=== PATIENT | male | born 1985 | race Caucasian/White ===

== ENCOUNTER 2017-02-06 17:16 | Inpatient (IN) | payer MEDICAID ==
[~2017-02-06] VITALS: Ht 170.2 cm; Wt 101.8 kg
[2017-02-06 19:24] LABS: ANION GAP 7 mmol/L (8-16); CALCIUM, TOTAL 8.5 mg/dL (8.8-10.5); CARBON DIOXIDE 25 mmol/L (22-29); CHLORIDE 106 mmol/L (98-107); CREATININE 0.86 mg/dL (0.60-1.30); GLOMERULAR FILTR. RATE CALC > 60 mL/min (>60); POTASSIUM 4.5 mmol/L (3.5-5.1); SODIUM SERUM 138 mmol/L (136-145); UREA NITROGEN, BLOOD 9 mg/dL (7-18)
[2017-02-06 19:29] LABS: ALANINE AMINOTRANSFERASE 43 U/L (12-78); ALBUMIN 3.5 g/dL (3.4-5.0); ASPARTATE AMINOTRANSFERASE 18 U/L (15-37); BILIRUBIN,TOTAL 0.4 mg/dL (0.1-1.0); TOTAL PROTEIN, SERUM 7.3 g/dL (6.4-8.2)
[2017-02-06 19:54] LABS: BASOPHILS % (AUTO) 0.1 % (0.0-2.0); EOSINOPHILS % (AUTO) 3.5 % (1.0-6.0); HEMATOCRIT 49.2 % (41-53); LYMPHOCYTES # (AUTO) 2.9 K/uL (1.0-4.8); LYMPHOCYTES % (AUTO) 25.2 % (22.0-44.0); MEAN CORPUSCULAR HGB CONC 32.6 G/dL (31.0-37.0); MEAN CORPUSCULAR VOLUME 83 fL (80-100); MONOCYTES # (AUTO) 0.7 K/uL (0.1-1.0); MONOCYTES % (AUTO) 5.7 % (2.0-9.0); NEUTROPHILS # (AUTO) 7.6 K/uL (1.8-7.7); NEUTROPHILS % (AUTO) 65.5 % (40.0-70.0); PLATELET COUNT (AUTO) 313 K/uL (150-450); RED BLOOD CELL COUNT(AUTO) 5.93 MIL/uL (4.50-5.90); RED CELL DISTRIBUTION WIDTH 13.7 % (11.5-14.5); WHITE BLOOD COUNT (AUTO) 11.6 K/uL (4.5-11.0)
[2017-02-06] MEDS ORDERED: LORazepam 2 MG TABLET PO PRN (20:30)
[2017-02-06] MEDS ORDERED: ZOLPIDEM TARTRATE 10 MG TABLET PO PRN (20:30)
[2017-02-06] MEDS ORDERED: LORazepam 2 MG TABLET PO ONE (20:30)
[2017-02-06] MEDS ORDERED: HALOPERIDOL 5 MG TABLET PO PRN (20:30)
[2017-02-06 22:52] VITALS: BP 122/86
[2017-02-07] MEDS ORDERED: CloNIDine HCL 0.1 MG TABLET PO PRN (08:15)
[2017-02-07] MEDS ORDERED: ALBUTEROL SULFATE HFA 90 MCG/PUFF 8 GM INHALER IH PRN (08:15)
[2017-02-07] MEDS ORDERED: BACITRACIN 28.4 GM OINTMENT TP PRN (08:15)
[2017-02-07] MEDS ORDERED: BENZOCAINE/MENTHOL LOZENGE [8 LOZENGES/PACKET] MM PRN (08:15)
[2017-02-07] MEDS ORDERED: MAG HYDROX/AL HYDROX/SIMETH ES 30 ML SUSPENSION UDCUP PO PRN (08:15)
[2017-02-07] MEDS ORDERED: LOPERAMIDE HCL 2 MG CAPSULE PO PRN (08:15)
[2017-02-07] MEDS ORDERED: ONDANSETRON HCL 4 MG TABLET PO PRN (08:15)
[2017-02-07] MEDS ORDERED: PETROLATUM,WHITE 71 GM JELLY TP PRN (08:15)
[2017-02-07] MEDS ORDERED: MAGNESIUM HYDROXIDE SUSPENSION 30 ML UDCUP PO PRN (08:15)
[2017-02-07] MEDS ORDERED: IBUPROFEN 600 MG TABLET PO PRN (08:15)
[2017-02-07] MEDS ORDERED: ACETAMINOPHEN 325 MG TABLET PO PRN (08:15)
[2017-02-07 09:18] VITALS: BP 126/71
[2017-02-07 17:54] VITALS: BP 122/78
[2017-02-08 08:00] VITALS: BP 130/87
[2017-02-08] MEDS ORDERED: HydrOXYzine PAMOATE 25 MG CAPSULE PO PRN (19:00)
[2017-02-08] MEDS: MIRTAZAPINE 15 MG TABLET PO SCH (20:27)
[2017-02-08 22:34] VITALS: BP 129/87
[2017-02-09 08:07] VITALS: BP 115/75
[2017-02-09 16:24] VITALS: BP 119/68
[2017-02-09] MEDS: MIRTAZAPINE 15 MG TABLET PO SCH (20:18)
[2017-02-10 14:16] VITALS: BP 124/93
[2017-02-10 16:05] VITALS: BP 122/66
[2017-02-10] MEDS: MIRTAZAPINE 15 MG TABLET PO SCH (20:29)
[2017-02-11 08:00] VITALS: BP 129/71
[2017-02-11] MEDS ORDERED: MIRT15 PO (08:56)
== END 2017-02-11 16:00 | disposition home or self-care (01) | DRG 751 ==
LOC: EMS 17:17 → 3EI 21:00
PROVIDERS: ADMIT Psychiatry & Neurology Child & Adolescent Psychiatry; ATTEND Psychiatry & Neurology Child & Adolescent Psychiatry
DX: F33.9 Major depressive disorder, recurrent, unspecified (principal); R45.851 Suicidal ideations; E83.51 Hypocalcemia; F14.10 Cocaine abuse, uncomplicated; E66.9 Obesity, unspecified; F20.9 Schizophrenia, unspecified; F12.90 Cannabis use, unspecified, uncomplicated; F17.200 Nicotine dependence, unspecified, uncomplicated; F19.10 Other psychoactive substance abuse, uncomplicated; Z68.35 Body mass index [BMI] 35.0-35.9, adult; Z71.51 Drug abuse counseling and surveillance of drug abuser; Z72.89 Other problems related to lifestyle; Z71.41 Alcohol abuse counseling and surveillance of alcoholic; Z59.0 Homelessness; Z91.5 Personal history of self-harm
CPT/HCPCS: 99285; G0480

== ENCOUNTER 2017-08-27 15:26 | Inpatient (IN) | payer MEDICAID ==
[~2017-08-27] VITALS: Ht 170.2 cm; Wt 97.0 kg
[~2017-08-27 15:26] MED LIST: ARIP10TA8 PO; MIRT15 PO; OMEG-12 PO; SIMV-259 PO
[2017-08-27] MEDS ORDERED: BUPR100 PO (15:37)
[2017-08-27 15:57] LABS: BASOPHILS % (AUTO) 0.2 % (0.0-2.0); EOSINOPHILS % (AUTO) 2.4 % (1.0-6.0); HEMATOCRIT 45.7 % (41-53); HEMOGLOBIN 15.1 g/dL (13.5-17.5); LYMPHOCYTES # (AUTO) 2.4 K/uL (1.0-4.8); LYMPHOCYTES % (AUTO) 27.4 % (22.0-44.0); MEAN CORPUSCULAR HEMOGLOBIN 27.4 pg (26.0-34.0); MEAN CORPUSCULAR HGB CONC 32.9 G/dL (31.0-37.0); MEAN CORPUSCULAR VOLUME 83 fL (80-100); MONOCYTES # (AUTO) 0.5 K/uL (0.1-1.0); MONOCYTES % (AUTO) 5.2 % (2.0-9.0); NEUTROPHILS # (AUTO) 5.7 K/uL (1.8-7.7); NEUTROPHILS % (AUTO) 64.8 % (40.0-70.0); PLATELET COUNT (AUTO) 284 K/uL (150-450); RED CELL DISTRIBUTION WIDTH 13.8 % (11.5-14.5); WHITE BLOOD COUNT (AUTO) 8.9 K/uL (4.5-11.0)
[2017-08-27 16:03] LABS: ANION GAP 8 mmol/L (8-16); CARBON DIOXIDE 26 mmol/L (22-29); CHLORIDE 103 mmol/L (98-107); CREATININE 1.03 mg/dL (0.60-1.30); GLOMERULAR FILTR. RATE CALC > 60 mL/min (>60); POTASSIUM 3.7 mmol/L (3.5-5.1); SODIUM SERUM 137 mmol/L (136-145); UREA NITROGEN, BLOOD 7 mg/dL (7-18)
[2017-08-27 16:09] LABS: ALANINE AMINOTRANSFERASE 46 U/L (12-78); ALBUMIN 3.8 g/dL (3.4-5.0); ASPARTATE AMINOTRANSFERASE 21 U/L (15-37); BILIRUBIN,TOTAL 0.7 mg/dL (0.1-1.0); TOTAL PROTEIN, SERUM 7.6 g/dL (6.4-8.2)
[2017-08-27] MEDS ORDERED: LORazepam 2 MG/ML VIAL IM ONE (16:15)
[2017-08-27] MEDS ORDERED: DiphenhydrAMINE HCL 50 MG/ML VIAL IM ONE (16:15)
[2017-08-27] MEDS ORDERED: HALOPERIDOL LACTATE 5 MG/ML VIAL IM ONE (16:15)
[2017-08-27 17:30] VITALS: BP 141/80
[2017-08-27] MEDS ORDERED: ZOLPIDEM TARTRATE 10 MG TABLET PO PRN (18:15)
[2017-08-27] MEDS ORDERED: LORazepam 2 MG TABLET PO PRN (18:15)
[2017-08-27] MEDS ORDERED: HALOPERIDOL 5 MG TABLET PO PRN (18:15)
[2017-08-27] MEDS: MIRTAZAPINE 15 MG TABLET PO SCH (20:22)
[2017-08-27 21:22] LABS: APPEARANCE,URINE TURBID (CLEAR); GLUCOSE, URINE (UA) NEGATIVE (NEGATIVE); KETONES,URINE TRACE mg/dL (NEGATIVE); LEUKOCYTE ESTERASE ,URINE NEGATIVE (NEGATIVE); OCCULT BLOOD,URINE NEGATIVE (NEGATIVE); PROTEIN,URINE POS 1+ (NEGATIVE)
[2017-08-27 21:32] LABS: ADD UA MICROSCOPIC NO
[2017-08-28 06:21] LABS: CHOL/HDL RATIO 5.9 (4.2-7.3)
[2017-08-28 08:31] VITALS: BP 105/71
[2017-08-28] MEDS ORDERED: LOPERAMIDE HCL 2 MG CAPSULE PO PRN (09:15)
[2017-08-28] MEDS ORDERED: BENZOCAINE/MENTHOL LOZENGE [8 LOZENGES/PACKET] MM PRN (09:15)
[2017-08-28] MEDS ORDERED: BENZOCAINE/MENTHOL LOZENGE MM PRN (09:15)
[2017-08-28] MEDS ORDERED: ONDANSETRON HCL 4 MG TABLET PO PRN (09:15)
[2017-08-28] MEDS ORDERED: ACETAMINOPHEN 325 MG TABLET PO PRN (09:15)
[2017-08-28] MEDS ORDERED: ALBUTEROL SULFATE HFA 90 MCG/PUFF 8 GM INHALER IH PRN (09:15)
[2017-08-28] MEDS ORDERED: CloNIDine HCL 0.1 MG TABLET PO PRN (09:15)
[2017-08-28] MEDS ORDERED: MAG HYDROX/AL HYDROX/SIMETH ES 30 ML SUSPENSION UDCUP PO PRN (09:15)
[2017-08-28] MEDS ORDERED: BACITRACIN 28.4 GM OINTMENT TP PRN (09:15)
[2017-08-28] MEDS ORDERED: MAGNESIUM HYDROXIDE SUSPENSION 30 ML UDCUP PO PRN (09:15)
[2017-08-28] MEDS ORDERED: PETROLATUM,WHITE 71 GM JELLY TP PRN (09:15)
[2017-08-28] MEDS ORDERED: IBUPROFEN 600 MG TABLET PO PRN (09:15)
[2017-08-28] MEDS: ARIPiprazole 10 MG TABLET PO SCH (10:44)
[2017-08-28 19:43] VITALS: BP 122/68
[2017-08-28] MEDS: MIRTAZAPINE 15 MG TABLET PO SCH (22:00)
[2017-08-29 06:18] VITALS: BP 105/63
[2017-08-29] MEDS: ARIPiprazole 10 MG TABLET PO SCH (08:48)
[2017-08-29 09:02] VITALS: BP 117/80
[2017-08-29 16:30] VITALS: BP 113/78
[2017-08-29] MEDS: MIRTAZAPINE 15 MG TABLET PO SCH (20:33)
[2017-08-30 08:14] VITALS: BP 101/63
[2017-08-30] MEDS: ARIPiprazole 10 MG TABLET PO SCH (10:33)
[2017-08-30 16:28] VITALS: BP 106/60
[2017-08-30] MEDS: MIRTAZAPINE 15 MG TABLET PO SCH (21:16)
[2017-08-31 08:19] VITALS: BP 98/52
[2017-08-31] MEDS: ARIPiprazole 10 MG TABLET PO SCH (09:29)
[2017-08-31 16:20] VITALS: BP 118/73
[2017-08-31] MEDS: MIRTAZAPINE 15 MG TABLET PO SCH (21:07)
[2017-09-01 08:17] VITALS: BP 97/63
[2017-09-01] MEDS: ARIPiprazole 10 MG TABLET PO SCH (09:13)
[2017-09-01 16:12] VITALS: BP 110/75
[2017-09-01] MEDS: MIRTAZAPINE 15 MG TABLET PO SCH (21:09)
[2017-09-02 08:19] VITALS: BP 118/70
[2017-09-02] MEDS: ARIPiprazole 10 MG TABLET PO SCH (12:29)
[2017-09-02 16:15] VITALS: BP 100/60
[2017-09-02] MEDS: MIRTAZAPINE 15 MG TABLET PO SCH (20:14)
[2017-09-02] MEDS ORDERED: MIRT15 PO (22:42)
[2017-09-02] MEDS ORDERED: ARIP10TA8 PO (22:42)
[2017-09-03 08:00] VITALS: BP 107/59
[2017-09-03] MEDS: ARIPiprazole 10 MG TABLET PO SCH (10:19)
== END 2017-09-03 14:29 | disposition home or self-care (01) | DRG 751 ==
LOC: EMS 15:27 → 3EI 19:00
PROVIDERS: ADMIT Psychiatry & Neurology Psychiatry; ATTEND Psychiatry & Neurology Psychiatry
DX: F33.3 Major depressive disorder, recurrent, severe with psychotic symptoms (principal); R45.851 Suicidal ideations; F15.10 Other stimulant abuse, uncomplicated; E66.9 Obesity, unspecified; F60.3 Borderline personality disorder; F12.90 Cannabis use, unspecified, uncomplicated; Z71.51 Drug abuse counseling and surveillance of drug abuser; F17.200 Nicotine dependence, unspecified, uncomplicated; Z71.6 Tobacco abuse counseling; F41.9 Anxiety disorder, unspecified; G47.00 Insomnia, unspecified; K59.00 Constipation, unspecified; Z59.0 Homelessness; Z91.5 Personal history of self-harm
CPT/HCPCS: 96372; 99285; G0480; J1630; J2060

== ENCOUNTER 2017-09-06 23:22 | Emergency (ER) | payer MEDICAID ==
[~2017-09-06] VITALS: Ht 170.2 cm; Wt 104.5 kg
[~2017-09-06 23:22] MED LIST changes: -OMEG-12 PO; -SIMV-259 PO
[2017-09-07 00:40] VITALS: BP 147/89
[2017-09-07] MEDS ORDERED: IBUPROFEN 800 MG TABLET PO ONE (01:00)
== END 2017-09-07 01:16 | disposition home or self-care (01) ==
LOC: EMS 23:23
DX: K08.89 Other specified disorders of teeth and supporting structures (principal); F12.90 Cannabis use, unspecified, uncomplicated; F14.90 Cocaine use, unspecified, uncomplicated; F17.200 Nicotine dependence, unspecified, uncomplicated
CPT/HCPCS: 99283; 99406

== ENCOUNTER 2017-09-09 21:03 | Emergency (ER) | payer MEDICAID ==
[~2017-09-09] VITALS: Ht 170.2 cm; Wt 100.0 kg
[2017-09-09 21:06] VITALS: BP 120/79
[2017-09-09] MEDS ORDERED: IBUP-2071 PO (21:06)
[2017-09-09] MEDS ORDERED: HYDROCODONE/ACETAMINOPHEN 5-325 MG TABLET PO ONE (21:45)
== END 2017-09-09 22:39 | disposition home or self-care (01) ==
LOC: EMS 21:05
DX: K02.9 Dental caries, unspecified (principal); F20.9 Schizophrenia, unspecified; F12.10 Cannabis abuse, uncomplicated; F14.10 Cocaine abuse, uncomplicated; F32.9 Major depressive disorder, single episode, unspecified
CPT/HCPCS: 99283

== ENCOUNTER 2018-02-10 10:34 | Emergency (ER) | payer MEDICAID ==
[~2018-02-10] VITALS: Ht 170.2 cm; Wt 100.0 kg
[~2018-02-10 10:34] MED LIST changes: +IBUP-2071 PO
[2018-02-10] MEDS ORDERED: BUPR75 PO (10:40)
[2018-02-10] MEDS ORDERED: CLON.2 PO (10:40)
[2018-02-10] MEDS ORDERED: SODIUM CHLORIDE 0.9% 1,000 ML IV ONE (11:15)
[2018-02-10] MEDS ORDERED: KETOROLAC TROMETHAMINE 30 MG/ML VIAL IVP ONE (11:15)
[2018-02-10] MEDS ORDERED: ONDANSETRON HCL 4 MG/2 ML VIAL IVP ONE (11:15)
[2018-02-10 12:00] LABS: BASOPHILS % (AUTO) 0.5 % (0.0-2.0); EOSINOPHILS % (AUTO) 4.2 % (1.0-6.0); HEMATOCRIT 49.5 % (41-53); HEMOGLOBIN 16.7 g/dL (13.5-17.5); LYMPHOCYTES # (AUTO) 2.8 K/uL (1.0-4.8); LYMPHOCYTES % (AUTO) 33.8 % (22.0-44.0); MEAN CORPUSCULAR HEMOGLOBIN 27.7 pg (26.0-34.0); MEAN CORPUSCULAR HGB CONC 33.7 G/dL (31.0-37.0); MEAN CORPUSCULAR VOLUME 82 fL (80-100); MONOCYTES # (AUTO) 0.6 K/uL (0.1-1.0); MONOCYTES % (AUTO) 7.2 % (2.0-9.0); NEUTROPHILS # (AUTO) 4.4 K/uL (1.8-7.7); NEUTROPHILS % (AUTO) 54.3 % (40.0-70.0); PLATELET COUNT (AUTO) 285 K/uL (150-450); RED BLOOD CELL COUNT(AUTO) 6.03 MIL/uL (4.50-5.90)
[2018-02-10 12:25] LABS: AMPHET/METH SCREEN,URINE POSITIVE (NEGATIVE); BARBITURATE SCREEN, URINE NEGATIVE (NEGATIVE); BENZODIAZEPINES SCREEN,URINE NEGATIVE (NEGATIVE); CANNABINOID SCREEN,URINE NEGATIVE (NEGATIVE); COCAINE SCREEN,URINE NEGATIVE (NEGATIVE); METHADONE SCREEN, URINE NEGATIVE (NEGATIVE); OPIATE SCREEN,URINE NEGATIVE (NEGATIVE)
[2018-02-10 12:26] LABS: PHENCYCLIDINE SCREEN,URINE NEGATIVE (NEGATIVE)
[2018-02-10 12:36] LABS: ANION GAP 8 mmol/L (8-16); CALCIUM, TOTAL 8.8 mg/dL (8.8-10.5); CARBON DIOXIDE 25 mmol/L (22-29); CHLORIDE 106 mmol/L (98-107); CREATININE 0.91 mg/dL (0.60-1.30); GLOMERULAR FILTR. RATE CALC > 60 mL/min (>60); GLUCOSE,RANDOM 101 mg/dL (70-110); POTASSIUM 3.8 mmol/L (3.5-5.1); SODIUM SERUM 139 mmol/L (136-145); UREA NITROGEN, BLOOD 10 mg/dL (7-18)
[2018-02-10 12:38] LABS: APPEARANCE,URINE CLEAR (CLEAR); BILIRUBIN,URINE NEGATIVE (NEGATIVE); GLUCOSE, URINE (UA) NEGATIVE (NEGATIVE); KETONES,URINE TRACE mg/dL (NEGATIVE); LEUKOCYTE ESTERASE ,URINE NEGATIVE (NEGATIVE); NITRATE,URINE NEGATIVE (NEGATIVE); OCCULT BLOOD,URINE NEGATIVE (NEGATIVE); PROTEIN,URINE TRACE (NEGATIVE); UROBILINOGEN,URINE 0.2 mg/dL (<=1.0)
[2018-02-10 12:39] LABS: ALANINE AMINOTRANSFERASE 42 U/L (12-78); ALBUMIN 3.7 g/dL (3.4-5.0); ALKALINE PHOSPHATASE 83 U/L (46-116); ASPARTATE AMINOTRANSFERASE 18 U/L (15-37); BILIRUBIN,TOTAL 0.7 mg/dL (0.1-1.0); LIPASE 151 U/L (73-393); TOTAL PROTEIN, SERUM 7.4 g/dL (6.4-8.2)
[2018-02-10 13:14] VITALS: BP 128/74
== END 2018-02-10 13:15 | disposition home or self-care (01) ==
LOC: EMS 10:39
DX: R10.32 Left lower quadrant pain (principal); R11.0 Nausea; K12.0 Recurrent oral aphthae; M79.1 Myalgia; F12.90 Cannabis use, unspecified, uncomplicated; F14.90 Cocaine use, unspecified, uncomplicated
CPT/HCPCS: 36415; 80053; 80307; 81003; 83690; 85025; 96361; 96374; 96375; 99284; J1885; J2405; J7030

== ENCOUNTER 2018-10-01 21:55 | Emergency (ER) | payer MEDICAID, OTHER ==
[~2018-10-01] VITALS: Ht 170.2 cm; Wt 113.6 kg
[~2018-10-01 21:55] MED LIST changes: -ARIP10TA8 PO; +BUPR75 PO; +CLON.2 PO; -IBUP-2071 PO; -MIRT15 PO
[2018-10-01] MEDS ORDERED: PB/HYOSCY/ATR/SCOP/LIDO/MAALOX 55 ML BOTTLE PO ONE (22:45)
[2018-10-01] MEDS ORDERED: KETOROLAC TROMETHAMINE 60 MG/2 ML VIAL IM ONE (23:00)
[2018-10-01 23:18] VITALS: BP 129/77
== END 2018-10-01 23:20 | disposition home or self-care (01) ==
LOC: EMS 21:56
DX: K12.0 Recurrent oral aphthae (principal); F41.9 Anxiety disorder, unspecified; F31.9 Bipolar disorder, unspecified; F20.9 Schizophrenia, unspecified
CPT/HCPCS: 96372; 99283; J1885

== ENCOUNTER 2018-10-07 10:44 | Emergency (ER) | payer SELFPAY ==
[~2018-10-07] VITALS: Ht 170.2 cm; Wt 97.7 kg
[~2018-10-07 10:44] MED LIST changes: -CLON.2 PO
[2018-10-07] MEDS ORDERED: DOXE50 PO (11:10)
[2018-10-07] MEDS ORDERED: TRAZ-219 PO (11:10)
[2018-10-07 13:03] VITALS: BP 138/89
== END 2018-10-07 13:05 | disposition home or self-care (01) ==
LOC: EMS 10:46
DX: J40 Bronchitis, not specified as acute or chronic (principal); F31.9 Bipolar disorder, unspecified; F20.9 Schizophrenia, unspecified; F41.9 Anxiety disorder, unspecified; F17.210 Nicotine dependence, cigarettes, uncomplicated
CPT/HCPCS: 99406

== ENCOUNTER 2018-11-08 14:23 | Inpatient (IN) | payer MEDICAID, OTHER ==
[~2018-11-08] VITALS: Ht 170.2 cm; Wt 114.4 kg
[~2018-11-08 14:23] MED LIST changes: +ARIP10TA8 PO; +BUPR-93 PO; -BUPR75 PO; +MIRT15 PO; +OMEG-135 PO
[2018-11-08] MEDS ORDERED: HALOPERIDOL 5 MG TABLET PO PRN (15:15)
[2018-11-08] MEDS ORDERED: ZOLPIDEM TARTRATE 10 MG TABLET PO PRN (15:15)
[2018-11-08 15:35] LABS: BASOPHILS % (AUTO) 0.4 % (0.0-2.0); EOSINOPHILS % (AUTO) 4.6 % (1.0-6.0); HEMATOCRIT 47.3 % (41-53); LYMPHOCYTES # (AUTO) 2.7 K/uL (1.0-4.8); LYMPHOCYTES % (AUTO) 27.2 % (22.0-44.0); MEAN CORPUSCULAR HGB CONC 33.8 G/dL (31.0-37.0); MEAN CORPUSCULAR VOLUME 83 fL (80-100); MONOCYTES # (AUTO) 0.7 K/uL (0.1-1.0); MONOCYTES % (AUTO) 7.1 % (2.0-9.0); NEUTROPHILS % (AUTO) 60.7 % (40.0-70.0); PLATELET COUNT (AUTO) 250 K/uL (150-450); RED CELL DISTRIBUTION WIDTH 13.7 % (11.5-14.5)
[2018-11-08 15:52] LABS: ANION GAP 5 mmol/L (8-16); CALCIUM, TOTAL 9.1 mg/dL (8.8-10.5); CARBON DIOXIDE 34 mmol/L (22-29); CHLORIDE 102 mmol/L (98-107); CREATININE 0.95 mg/dL (0.60-1.30); GLOMERULAR FILTR. RATE CALC > 60 mL/min (>60); GLUCOSE,RANDOM 104 mg/dL (70-110); POTASSIUM 3.3 mmol/L (3.5-5.1); SODIUM SERUM 141 mmol/L (136-145); UREA NITROGEN, BLOOD 7 mg/dL (7-18)
[2018-11-08 15:56] LABS: ALANINE AMINOTRANSFERASE 63 U/L (12-78); ALBUMIN 3.6 g/dL (3.4-5.0); ALKALINE PHOSPHATASE 94 U/L (46-116); ASPARTATE AMINOTRANSFERASE 32 U/L (15-37); BILIRUBIN,TOTAL 0.8 mg/dL (0.1-1.0); TOTAL PROTEIN, SERUM 7.7 g/dL (6.4-8.2)
[2018-11-08] MEDS ORDERED: POTASSIUM CHLORIDE 20 MEQ ER TABLET PO ONE (16:00)
[2018-11-08 17:30] VITALS: BP 149/90
[2018-11-08] MEDS ORDERED: LOPERAMIDE HCL 2 MG CAPSULE PO PRN (17:45)
[2018-11-08] MEDS ORDERED: CloNIDine HCL 0.1 MG TABLET PO PRN (17:45)
[2018-11-08] MEDS ORDERED: PETROLATUM,WHITE 71 GM JELLY TP PRN (17:45)
[2018-11-08] MEDS ORDERED: IBUPROFEN 600 MG TABLET PO PRN (17:45)
[2018-11-08] MEDS ORDERED: ALBUTEROL SULFATE HFA 90 MCG/PUFF 8 GM INHALER IH PRN (17:45)
[2018-11-08] MEDS ORDERED: ACETAMINOPHEN 325 MG TABLET PO PRN (17:45)
[2018-11-08] MEDS ORDERED: BENZOCAINE/MENTHOL LOZENGE MM PRN (17:45)
[2018-11-08] MEDS ORDERED: ONDANSETRON HCL 4 MG TABLET PO PRN (17:45)
[2018-11-08] MEDS ORDERED: MAGNESIUM HYDROXIDE SUSPENSION 30 ML UDCUP PO PRN (17:45)
[2018-11-08] MEDS ORDERED: BACITRACIN 28.4 GM OINTMENT TP PRN (17:45)
[2018-11-08] MEDS ORDERED: MAG HYDROX/AL HYDROX/SIMETH ES 30 ML SUSPENSION UDCUP PO PRN (17:45)
[2018-11-08] MEDS: LORazepam 2 MG TABLET PO PRN (18:23)
[2018-11-08 20:23] VITALS: BP 116/70
[2018-11-08] MEDS: MIRTAZAPINE 15 MG TABLET PO SCH (21:12)
[2018-11-09 00:15] VITALS: BP 131/87
[2018-11-09 08:21] VITALS: BP 114/65
[2018-11-09] MEDS: BuPROPion HCL XL 150 MG ER TABLET PO SCH (08:52)
[2018-11-09] MEDS: ARIPiprazole 10 MG TABLET PO SCH (08:52)
[2018-11-09] MEDS: OMEGA-3/DHA/EPA/FISH OIL 1,000 MG CAPSULE PO SCH (08:52)
[2018-11-09 16:42] VITALS: BP 111/70
[2018-11-09] MEDS: MIRTAZAPINE 15 MG TABLET PO SCH (20:14)
[2018-11-10 00:45] VITALS: BP 136/90
[2018-11-10] MEDS: BuPROPion HCL XL 150 MG ER TABLET PO SCH (08:37)
[2018-11-10] MEDS: ARIPiprazole 10 MG TABLET PO SCH (08:37)
[2018-11-10] MEDS: OMEGA-3/DHA/EPA/FISH OIL 1,000 MG CAPSULE PO SCH (08:37)
[2018-11-10 16:20] VITALS: BP 108/63
[2018-11-10] MEDS: MIRTAZAPINE 15 MG TABLET PO SCH (20:25)
[2018-11-11 02:00] VITALS: BP 112/72
[2018-11-11 08:26] LABS: BASOPHILS % (AUTO) 0.7 % (0.0-2.0); EOSINOPHILS % (AUTO) 4.9 % (1.0-6.0); HEMATOCRIT 47.6 % (41-53); LYMPHOCYTES # (AUTO) 3.2 K/uL (1.0-4.8); LYMPHOCYTES % (AUTO) 34.7 % (22.0-44.0); MEAN CORPUSCULAR HEMOGLOBIN 27.8 pg (26.0-34.0); MEAN CORPUSCULAR HGB CONC 33.6 G/dL (31.0-37.0); MEAN CORPUSCULAR VOLUME 83 fL (80-100); MONOCYTES # (AUTO) 0.5 K/uL (0.1-1.0); MONOCYTES % (AUTO) 5.8 % (2.0-9.0); NEUTROPHILS # (AUTO) 4.9 K/uL (1.8-7.7); NEUTROPHILS % (AUTO) 53.9 % (40.0-70.0); PLATELET COUNT (AUTO) 284 K/uL (150-450); RED BLOOD CELL COUNT(AUTO) 5.75 MIL/uL (4.50-5.90); RED CELL DISTRIBUTION WIDTH 13.8 % (11.5-14.5)
[2018-11-11 08:56] LABS: HEMOGLOBIN A1C 5.9 % (4.5-6.2)
[2018-11-11] MEDS: ARIPiprazole 10 MG TABLET PO SCH (09:03)
[2018-11-11] MEDS: OMEGA-3/DHA/EPA/FISH OIL 1,000 MG CAPSULE PO SCH (09:03)
[2018-11-11] MEDS: BuPROPion HCL XL 150 MG ER TABLET PO SCH (09:03)
[2018-11-11 09:23] LABS: ALANINE AMINOTRANSFERASE 56 U/L (12-78); ALBUMIN 3.2 g/dL (3.4-5.0); ALKALINE PHOSPHATASE 71 U/L (46-116); ANION GAP 7 mmol/L (8-16); ASPARTATE AMINOTRANSFERASE 29 U/L (15-37); BILIRUBIN,TOTAL 0.2 mg/dL (0.1-1.0); CALCIUM, TOTAL 8.9 mg/dL (8.8-10.5); CARBON DIOXIDE 28 mmol/L (22-29); CHLORIDE 107 mmol/L (98-107); CHOL/HDL RATIO 7.5 (4.2-7.3); CHOLESTEROL 165 mg/dL (131-200); CREATININE 0.84 mg/dL (0.60-1.30); FREE T4 (FREE THYROXINE) 0.95 ng/dL (0.76-1.46); GLOMERULAR FILTR. RATE CALC > 60 mL/min (>60); GLUCOSE,RANDOM 97 mg/dL (70-110); HDL CHOLESTEROL 22 mg/dL (40-60); LDL CHOL (CALC.) 96 mg/dL (0-130); POTASSIUM 4.2 mmol/L (3.5-5.1); SODIUM SERUM 142 mmol/L (136-145); THYROID STIMULATING HORMONE 0.48 uIU/mL (0.36-3.74); TOTAL PROTEIN, SERUM 6.4 g/dL (6.4-8.2); TRIGLYCERIDES 233 mg/dL (15-150); UREA NITROGEN, BLOOD 8 mg/dL (7-18)
[2018-11-11 16:25] VITALS: BP 100/61
[2018-11-11] MEDS: MIRTAZAPINE 15 MG TABLET PO SCH (20:46)
[2018-11-12 02:20] VITALS: BP 106/76
[2018-11-12] MEDS: BuPROPion HCL XL 150 MG ER TABLET PO SCH (09:07)
[2018-11-12] MEDS: OMEGA-3/DHA/EPA/FISH OIL 1,000 MG CAPSULE PO SCH (09:08)
[2018-11-12] MEDS: ARIPiprazole 10 MG TABLET PO SCH (09:08)
[2018-11-12 16:26] VITALS: BP 118/68
[2018-11-12] MEDS: MIRTAZAPINE 15 MG TABLET PO SCH (20:47)
[2018-11-13 00:54] VITALS: BP 101/60
[2018-11-13 08:32] VITALS: BP 115/68
[2018-11-13] MEDS: ARIPiprazole 10 MG TABLET PO SCH (09:06)
[2018-11-13] MEDS: BuPROPion HCL XL 150 MG ER TABLET PO SCH (09:07)
[2018-11-13] MEDS: OMEGA-3/DHA/EPA/FISH OIL 1,000 MG CAPSULE PO SCH (09:07)
[2018-11-13 16:55] VITALS: BP 104/59
[2018-11-13] MEDS: MIRTAZAPINE 15 MG TABLET PO SCH (20:20)
[2018-11-14 00:34] VITALS: BP 122/73
[2018-11-14] MEDS: BuPROPion HCL XL 150 MG ER TABLET PO SCH (08:30)
[2018-11-14] MEDS: ARIPiprazole 10 MG TABLET PO SCH (08:30)
[2018-11-14] MEDS: OMEGA-3/DHA/EPA/FISH OIL 1,000 MG CAPSULE PO SCH (08:30)
[2018-11-14 08:32] VITALS: BP 118/66
[2018-11-14 16:16] VITALS: BP 115/67
[2018-11-14] MEDS: MIRTAZAPINE 15 MG TABLET PO SCH (20:32)
[2018-11-15 00:16] VITALS: BP 103/74
[2018-11-15 08:39] VITALS: BP 116/60
[2018-11-15] MEDS: BuPROPion HCL XL 150 MG ER TABLET PO SCH (08:54)
[2018-11-15] MEDS: OMEGA-3/DHA/EPA/FISH OIL 1,000 MG CAPSULE PO SCH (08:54)
[2018-11-15] MEDS: ARIPiprazole 10 MG TABLET PO SCH (08:54)
[2018-11-15 16:07] VITALS: BP 115/68
[2018-11-15] MEDS: LORazepam 2 MG TABLET PO PRN (17:18)
[2018-11-15] MEDS: MIRTAZAPINE 15 MG TABLET PO SCH (20:42)
[2018-11-16 00:55] VITALS: BP 122/75
[2018-11-16 08:26] VITALS: BP 110/68
[2018-11-16] MEDS: OMEGA-3/DHA/EPA/FISH OIL 1,000 MG CAPSULE PO SCH (09:01)
[2018-11-16] MEDS: ARIPiprazole 10 MG TABLET PO SCH (09:01)
[2018-11-16] MEDS: BuPROPion HCL XL 150 MG ER TABLET PO SCH (09:01)
[2018-11-16 16:52] VITALS: BP 122/80
[2018-11-16] MEDS: MIRTAZAPINE 15 MG TABLET PO SCH (20:19)
[2018-11-17 00:57] VITALS: BP 125/73
[2018-11-17 08:26] VITALS: BP 112/74
[2018-11-17] MEDS: OMEGA-3/DHA/EPA/FISH OIL 1,000 MG CAPSULE PO SCH (09:07)
[2018-11-17] MEDS: BuPROPion HCL XL 150 MG ER TABLET PO SCH (09:07)
[2018-11-17] MEDS: ARIPiprazole 10 MG TABLET PO SCH (09:07)
[2018-11-17 16:12] VITALS: BP_SYST 109; BP_SYST 118; BP_DIAS 62; BP_DIAS 75
[2018-11-17] MEDS: LORazepam 2 MG TABLET PO PRN (20:17)
[2018-11-17] MEDS: MIRTAZAPINE 15 MG TABLET PO SCH (20:17)
[2018-11-18 03:36] VITALS: BP 120/81
[2018-11-18] MEDS: OMEGA-3/DHA/EPA/FISH OIL 1,000 MG CAPSULE PO SCH (09:00)
[2018-11-18] MEDS: ARIPiprazole 10 MG TABLET PO SCH (09:07)
[2018-11-18] MEDS: BuPROPion HCL XL 150 MG ER TABLET PO SCH (09:07)
[2018-11-18 09:12] VITALS: BP 117/77
[2018-11-18] MEDS: LORazepam 2 MG TABLET PO PRN (10:58)
[2018-11-18 16:13] VITALS: BP 106/66
[2018-11-18] MEDS: MIRTAZAPINE 15 MG TABLET PO SCH (20:39)
[2018-11-19 00:21] VITALS: BP 122/69
[2018-11-19] MEDS: ARIPiprazole 10 MG TABLET PO SCH (09:20)
[2018-11-19] MEDS: BuPROPion HCL XL 150 MG ER TABLET PO SCH (09:20)
[2018-11-19] MEDS: OMEGA-3/DHA/EPA/FISH OIL 1,000 MG CAPSULE PO SCH (09:20)
[2018-11-19 10:15] VITALS: BP 109/67
[2018-11-19 16:08] VITALS: BP 111/64
[2018-11-19] MEDS: MIRTAZAPINE 15 MG TABLET PO SCH (20:11)
[2018-11-20 05:54] VITALS: BP 109/62
[2018-11-20] MEDS: ARIPiprazole 10 MG TABLET PO SCH (08:47)
[2018-11-20] MEDS: OMEGA-3/DHA/EPA/FISH OIL 1,000 MG CAPSULE PO SCH (08:47)
[2018-11-20] MEDS: BuPROPion HCL XL 150 MG ER TABLET PO SCH (08:47)
[2018-11-20 09:03] VITALS: BP 129/85
[2018-11-20 16:44] VITALS: BP 112/71
[2018-11-20] MEDS: MIRTAZAPINE 15 MG TABLET PO SCH (20:09)
[2018-11-21 00:40] VITALS: BP 119/84
== END 2018-11-21 07:40 | disposition home or self-care (01) | DRG 750 ==
LOC: EMS 14:25 → 2WR 16:27 → B2S 17:57
PROVIDERS: ADMIT Psychiatry & Neurology Psychiatry; ATTEND Psychiatry & Neurology Psychiatry
DX: F25.9 Schizoaffective disorder, unspecified (principal); R45.851 Suicidal ideations; Z59.0 Homelessness; E66.9 Obesity, unspecified; E78.1 Pure hyperglyceridemia; E78.5 Hyperlipidemia, unspecified; E87.6 Hypokalemia; F12.90 Cannabis use, unspecified, uncomplicated; F15.10 Other stimulant abuse, uncomplicated; F17.200 Nicotine dependence, unspecified, uncomplicated; F31.9 Bipolar disorder, unspecified; F41.9 Anxiety disorder, unspecified; F60.0 Paranoid personality disorder; G47.00 Insomnia, unspecified; K59.00 Constipation, unspecified; R03.0 Elevated blood-pressure reading, without diagnosis of hypertension; Z68.39 Body mass index [BMI] 39.0-39.9, adult; Z91.5 Personal history of self-harm
CPT/HCPCS: 83036; 84439; 84443; 87081; G0480

== ENCOUNTER 2018-12-07 11:46 | Inpatient (IN) | payer MEDICAID, OTHER ==
[~2018-12-07] VITALS: Ht 170.2 cm; Wt 116.6 kg
[2018-12-07] MEDS ORDERED: TRAZ-220 PO (12:28)
[2018-12-07 14:52] LABS: BASOPHILS % (AUTO) 0.3 % (0.0-2.0); EOSINOPHILS % (AUTO) 3.6 % (1.0-6.0); HEMATOCRIT 48.4 % (41-53); HEMOGLOBIN 15.9 g/dL (13.5-17.5); LYMPHOCYTES # (AUTO) 2.3 K/uL (1.0-4.8); LYMPHOCYTES % (AUTO) 23.4 % (22.0-44.0); MEAN CORPUSCULAR HEMOGLOBIN 27.2 pg (26.0-34.0); MEAN CORPUSCULAR HGB CONC 32.8 G/dL (31.0-37.0); MEAN CORPUSCULAR VOLUME 83 fL (80-100); MONOCYTES # (AUTO) 0.5 K/uL (0.1-1.0); MONOCYTES % (AUTO) 4.8 % (2.0-9.0); NEUTROPHILS # (AUTO) 6.8 K/uL (1.8-7.7); NEUTROPHILS % (AUTO) 67.9 % (40.0-70.0); PLATELET COUNT (AUTO) 282 K/uL (150-450); RED BLOOD CELL COUNT(AUTO) 5.84 MIL/uL (4.50-5.90); RED CELL DISTRIBUTION WIDTH 14.2 % (11.5-14.5)
[2018-12-07 15:13] LABS: ANION GAP 5 mmol/L (8-16); CALCIUM, TOTAL 8.9 mg/dL (8.8-10.5); CARBON DIOXIDE 29 mmol/L (22-29); CHLORIDE 103 mmol/L (98-107); CREATININE 0.93 mg/dL (0.60-1.30); GLOMERULAR FILTR. RATE CALC > 60 mL/min (>60); GLUCOSE,RANDOM 108 mg/dL (70-110); POTASSIUM 3.9 mmol/L (3.5-5.1); SODIUM SERUM 137 mmol/L (136-145); UREA NITROGEN, BLOOD 10 mg/dL (7-18)
[2018-12-07 15:19] LABS: ALANINE AMINOTRANSFERASE 47 U/L (12-78); ALBUMIN 3.6 g/dL (3.4-5.0); ALKALINE PHOSPHATASE 81 U/L (46-116); ASPARTATE AMINOTRANSFERASE 20 U/L (15-37); BILIRUBIN,TOTAL 0.4 mg/dL (0.1-1.0); TOTAL PROTEIN, SERUM 7.5 g/dL (6.4-8.2)
[2018-12-07] MEDS ORDERED: LORazepam 2 MG TABLET PO PRN (15:30)
[2018-12-07] MEDS ORDERED: HALOPERIDOL 5 MG TABLET PO PRN (15:30)
[2018-12-07] MEDS ORDERED: ZOLPIDEM TARTRATE 10 MG TABLET PO PRN (15:30)
[2018-12-07 19:15] VITALS: BP 140/91
[2018-12-07] MEDS ORDERED: NICOTINE POLACRILEX 2 MG LOZENGE PO PRN (21:15)
[2018-12-08 05:40] VITALS: BP 131/86
[2018-12-08] MEDS ORDERED: MAGNESIUM HYDROXIDE SUSPENSION 30 ML UDCUP PO PRN (08:15)
[2018-12-08] MEDS ORDERED: BENZOCAINE/MENTHOL LOZENGE MM PRN (08:15)
[2018-12-08] MEDS ORDERED: ONDANSETRON HCL 4 MG TABLET PO PRN (08:15)
[2018-12-08] MEDS ORDERED: LOPERAMIDE HCL 2 MG CAPSULE PO PRN (08:15)
[2018-12-08] MEDS ORDERED: ACETAMINOPHEN 325 MG TABLET PO PRN (08:15)
[2018-12-08] MEDS ORDERED: BACITRACIN 28.4 GM OINTMENT TP PRN (08:15)
[2018-12-08] MEDS ORDERED: IBUPROFEN 600 MG TABLET PO PRN (08:15)
[2018-12-08] MEDS ORDERED: CloNIDine HCL 0.1 MG TABLET PO PRN (08:15)
[2018-12-08] MEDS ORDERED: ALBUTEROL SULFATE HFA 90 MCG/PUFF 8 GM INHALER IH PRN (08:15)
[2018-12-08] MEDS ORDERED: PETROLATUM,WHITE 71 GM JELLY TP PRN (08:15)
[2018-12-08] MEDS ORDERED: MAG HYDROX/AL HYDROX/SIMETH ES 30 ML SUSPENSION UDCUP PO PRN (08:15)
[2018-12-08 08:29] VITALS: BP 129/60
[2018-12-08] MEDS: OMEGA-3/DHA/EPA/FISH OIL 1,000 MG CAPSULE PO SCH (09:29)
[2018-12-08 16:22] VITALS: BP 142/71
[2018-12-08] MEDS: MIRTAZAPINE 15 MG TABLET PO SCH (20:39)
[2018-12-08] MEDS ORDERED: MIRT15 PO (21:57)
[2018-12-09 04:44] VITALS: BP 128/74
[2018-12-09 09:22] VITALS: BP 136/67
[2018-12-09 09:24] VITALS: BP 136/67
[2018-12-09] MEDS: ARIPiprazole 10 MG TABLET PO SCH (10:36)
[2018-12-09] MEDS: BuPROPion HCL XL 150 MG ER TABLET PO SCH (10:36)
[2018-12-09] MEDS: OMEGA-3/DHA/EPA/FISH OIL 1,000 MG CAPSULE PO SCH (10:36)
[2018-12-09 16:55] VITALS: BP 143/70
[2018-12-09] MEDS: MIRTAZAPINE 15 MG TABLET PO SCH (21:00)
[2018-12-10 04:04] VITALS: BP 138/72
[2018-12-10 08:08] LABS: CHOL/HDL RATIO 7.5 (4.2-7.3)
[2018-12-10 08:27] VITALS: BP 119/73
[2018-12-10 08:28] VITALS: BP 119/73
[2018-12-10] MEDS: ARIPiprazole 10 MG TABLET PO SCH (08:44)
[2018-12-10] MEDS: BuPROPion HCL XL 150 MG ER TABLET PO SCH (08:44)
[2018-12-10] MEDS: OMEGA-3/DHA/EPA/FISH OIL 1,000 MG CAPSULE PO SCH (08:44)
[2018-12-10 17:46] VITALS: BP 100/60
[2018-12-10] MEDS: TraZODone HCL 50 MG TABLET PO SCH (20:37)
[2018-12-10] MEDS: MIRTAZAPINE 15 MG TABLET PO SCH (20:37)
[2018-12-11 07:13] VITALS: BP 110/72
[2018-12-11] MEDS: ARIPiprazole 10 MG TABLET PO SCH (09:00)
[2018-12-11] MEDS: BuPROPion HCL XL 150 MG ER TABLET PO SCH (09:01)
[2018-12-11] MEDS: OMEGA-3/DHA/EPA/FISH OIL 1,000 MG CAPSULE PO SCH (09:01)
[2018-12-11 16:13] VITALS: BP 112/66
[2018-12-11] MEDS ORDERED: TRAZ-219 PO (20:13)
[2018-12-11] MEDS: MIRTAZAPINE 15 MG TABLET PO SCH (20:44)
[2018-12-11] MEDS: TraZODone HCL 50 MG TABLET PO SCH (20:44)
[2018-12-12 02:18] VITALS: BP 108/65
[2018-12-12] MEDS: OMEGA-3/DHA/EPA/FISH OIL 1,000 MG CAPSULE PO SCH (08:50)
[2018-12-12] MEDS: BuPROPion HCL XL 150 MG ER TABLET PO SCH (08:50)
[2018-12-12] MEDS: ARIPiprazole 10 MG TABLET PO SCH (08:50)
[2018-12-12 17:22] VITALS: BP 105/68
[2018-12-12] MEDS: TraZODone HCL 50 MG TABLET PO SCH (20:21)
[2018-12-12] MEDS: MIRTAZAPINE 15 MG TABLET PO SCH (20:21)
[2018-12-13 08:38] VITALS: BP 118/70
[2018-12-13] MEDS: OMEGA-3/DHA/EPA/FISH OIL 1,000 MG CAPSULE PO SCH (09:00)
[2018-12-13] MEDS: ARIPiprazole 10 MG TABLET PO SCH (10:00)
[2018-12-13] MEDS: BuPROPion HCL XL 150 MG ER TABLET PO SCH (10:00)
[2018-12-13 17:30] VITALS: BP 112/66
[2018-12-13] MEDS: MIRTAZAPINE 15 MG TABLET PO SCH (20:27)
[2018-12-13] MEDS: TraZODone HCL 50 MG TABLET PO SCH (20:27)
[2018-12-14 00:50] VITALS: BP 118/64
[2018-12-14 08:31] VITALS: BP 114/70
[2018-12-14] MEDS: BuPROPion HCL XL 150 MG ER TABLET PO SCH (09:23)
[2018-12-14] MEDS: OMEGA-3/DHA/EPA/FISH OIL 1,000 MG CAPSULE PO SCH (09:23)
[2018-12-14] MEDS: ARIPiprazole 10 MG TABLET PO SCH (09:23)
[2018-12-14 16:53] VITALS: BP 119/93
[2018-12-14] MEDS: TraZODone HCL 50 MG TABLET PO SCH (20:18)
[2018-12-14] MEDS: MIRTAZAPINE 15 MG TABLET PO SCH (20:18)
[2018-12-14] MEDS ORDERED: OMEG-135 PO (21:24)
[2018-12-15 00:55] VITALS: BP 134/71
[2018-12-15] MEDS: OMEGA-3/DHA/EPA/FISH OIL 1,000 MG CAPSULE PO SCH (08:09)
[2018-12-15] MEDS: BuPROPion HCL XL 150 MG ER TABLET PO SCH (08:09)
[2018-12-15] MEDS: ARIPiprazole 10 MG TABLET PO SCH (08:09)
[2018-12-15 08:20] VITALS: BP 126/96
== END 2018-12-15 13:10 | disposition home or self-care (01) | DRG 750 ==
LOC: EMS 11:46 → B2S 17:29
PROVIDERS: ADMIT Psychiatry & Neurology Psychiatry; ATTEND Psychiatry & Neurology Psychiatry
DX: F25.9 Schizoaffective disorder, unspecified (principal); R45.851 Suicidal ideations; Z68.41 Body mass index [BMI] 40.0-44.9, adult; Z59.0 Homelessness; E66.9 Obesity, unspecified; F17.200 Nicotine dependence, unspecified, uncomplicated; F15.10 Other stimulant abuse, uncomplicated; F12.90 Cannabis use, unspecified, uncomplicated; E78.5 Hyperlipidemia, unspecified; E78.1 Pure hyperglyceridemia; K59.00 Constipation, unspecified; G47.00 Insomnia, unspecified; F41.9 Anxiety disorder, unspecified; F31.9 Bipolar disorder, unspecified; Z71.6 Tobacco abuse counseling; Z71.51 Drug abuse counseling and surveillance of drug abuser
CPT/HCPCS: 87081; G0480

== ENCOUNTER 2019-01-27 18:47 | Inpatient (IN) | payer MEDICAID, OTHER ==
[~2019-01-27] VITALS: Ht 170.2 cm; Wt 112.0 kg
[~2019-01-27 18:47] MED LIST changes: +TRAZ-219 PO
[2019-01-27 20:38] LABS: BASOPHILS % (AUTO) 0.5 % (0.0-2.0); EOSINOPHILS % (AUTO) 2.1 % (1.0-6.0); HEMATOCRIT 48.4 % (41-53); HEMOGLOBIN 16.3 g/dL (13.5-17.5); LYMPHOCYTES # (AUTO) 2.2 K/uL (1.0-4.8); LYMPHOCYTES % (AUTO) 19.6 % (22.0-44.0); MEAN CORPUSCULAR HGB CONC 33.6 G/dL (31.0-37.0); MEAN CORPUSCULAR VOLUME 81 fL (80-100); MONOCYTES # (AUTO) 0.5 K/uL (0.1-1.0); MONOCYTES % (AUTO) 4.3 % (2.0-9.0); NEUTROPHILS # (AUTO) 8.3 K/uL (1.8-7.7); NEUTROPHILS % (AUTO) 73.5 % (40.0-70.0); PLATELET COUNT (AUTO) 341 K/uL (150-450); RED BLOOD CELL COUNT(AUTO) 6.01 MIL/uL (4.50-5.90); RED CELL DISTRIBUTION WIDTH 14.4 % (11.5-14.5)
[2019-01-27 20:47] LABS: ANION GAP 5 mmol/L (8-16); CALCIUM, TOTAL 9.3 mg/dL (8.8-10.5); CARBON DIOXIDE 28 mmol/L (22-29); CHLORIDE 105 mmol/L (98-107); GLOMERULAR FILTR. RATE CALC > 60 mL/min (>60); GLUCOSE,RANDOM 109 mg/dL (70-110); POTASSIUM 4.1 mmol/L (3.5-5.1); SODIUM SERUM 138 mmol/L (136-145); UREA NITROGEN, BLOOD 4 mg/dL (7-18)
[2019-01-27 20:53] LABS: ALANINE AMINOTRANSFERASE 49 U/L (12-78); ALBUMIN 3.8 g/dL (3.4-5.0); ALKALINE PHOSPHATASE 81 U/L (46-116); ASPARTATE AMINOTRANSFERASE 19 U/L (15-37); BILIRUBIN,TOTAL 0.4 mg/dL (0.1-1.0); TOTAL PROTEIN, SERUM 7.5 g/dL (6.4-8.2)
[2019-01-27 23:03] LABS: AMPHET/METH SCREEN,URINE POSITIVE (NEGATIVE); BARBITURATE SCREEN, URINE NEGATIVE (NEGATIVE); BENZODIAZEPINES SCREEN,URINE NEGATIVE (NEGATIVE); CANNABINOID SCREEN,URINE NEGATIVE (NEGATIVE); COCAINE SCREEN,URINE NEGATIVE (NEGATIVE); METHADONE SCREEN, URINE NEGATIVE (NEGATIVE); OPIATE SCREEN,URINE NEGATIVE (NEGATIVE); PHENCYCLIDINE SCREEN,URINE NEGATIVE (NEGATIVE)
[2019-01-28] MEDS ORDERED: ZOLPIDEM TARTRATE 10 MG TABLET PO PRN (00:15)
[2019-01-28] MEDS ORDERED: HALOPERIDOL 5 MG TABLET PO PRN (00:15)
[2019-01-28] MEDS ORDERED: LORazepam 2 MG TABLET PO PRN (00:15)
[2019-01-28 01:32] VITALS: BP 125/89
[2019-01-28] MEDS ORDERED: PETROLATUM,WHITE 28 GM JELLY TP PRN (07:45)
[2019-01-28] MEDS ORDERED: ALBUTEROL SULFATE HFA 90 MCG/PUFF 8 GM INHALER IH PRN (07:45)
[2019-01-28] MEDS ORDERED: LOPERAMIDE HCL 2 MG CAPSULE PO PRN (07:45)
[2019-01-28] MEDS ORDERED: CloNIDine HCL 0.1 MG TABLET PO PRN (07:45)
[2019-01-28] MEDS ORDERED: ACETAMINOPHEN 325 MG TABLET PO PRN (07:45)
[2019-01-28] MEDS ORDERED: MAGNESIUM HYDROXIDE SUSPENSION 30 ML UDCUP PO PRN (07:45)
[2019-01-28] MEDS ORDERED: IBUPROFEN 600 MG TABLET PO PRN (07:45)
[2019-01-28] MEDS ORDERED: BENZOCAINE/MENTHOL LOZENGE MM PRN (07:45)
[2019-01-28] MEDS ORDERED: MAG HYDROX/AL HYDROX/SIMETH ES 30 ML SUSPENSION UDCUP PO PRN (07:45)
[2019-01-28] MEDS ORDERED: ONDANSETRON HCL 4 MG TABLET PO PRN (07:45)
[2019-01-28] MEDS ORDERED: BACITRACIN 28.4 GM OINTMENT TP PRN (07:45)
[2019-01-28 08:22] VITALS: BP 118/70
[2019-01-28] MEDS: OMEGA-3/DHA/EPA/FISH OIL 1,000 MG CAPSULE PO SCH (12:23)
[2019-01-28] MEDS: OMEPRAZOLE 20 MG CAPSULE PO SCH (12:23)
[2019-01-28] MEDS: DOCUSATE SODIUM 100 MG CAPSULE PO SCH (12:23)
[2019-01-28 16:16] VITALS: BP 102/60
[2019-01-28] MEDS: MIRTAZAPINE 15 MG TABLET PO SCH (20:29)
[2019-01-28] MEDS: TraZODone HCL 50 MG TABLET PO SCH (20:29)
[2019-01-29] MEDS: OMEGA-3/DHA/EPA/FISH OIL 1,000 MG CAPSULE PO SCH (08:38)
[2019-01-29] MEDS: ARIPiprazole 10 MG TABLET PO SCH (08:38)
[2019-01-29] MEDS: BuPROPion HCL XL 150 MG ER TABLET PO SCH (08:38)
[2019-01-29] MEDS: DOCUSATE SODIUM 100 MG CAPSULE PO SCH (08:39)
[2019-01-29] MEDS: OMEPRAZOLE 20 MG CAPSULE PO SCH (08:39)
[2019-01-29 16:28] VITALS: BP 110/66
[2019-01-29] MEDS: MIRTAZAPINE 15 MG TABLET PO SCH (20:28)
[2019-01-29] MEDS: TraZODone HCL 50 MG TABLET PO SCH (20:28)
[2019-01-30 00:19] VITALS: BP 108/64
[2019-01-30 08:31] LABS: BASOPHILS % (AUTO) 0.2 % (0.0-2.0); EOSINOPHILS % (AUTO) 3.5 % (1.0-6.0); HEMOGLOBIN 16.1 g/dL (13.5-17.5); LYMPHOCYTES # (AUTO) 3.2 K/uL (1.0-4.8); LYMPHOCYTES % (AUTO) 32.1 % (22.0-44.0); MEAN CORPUSCULAR HEMOGLOBIN 27.2 pg (26.0-34.0); MEAN CORPUSCULAR HGB CONC 33.5 G/dL (31.0-37.0); MEAN CORPUSCULAR VOLUME 81 fL (80-100); MONOCYTES # (AUTO) 0.6 K/uL (0.1-1.0); MONOCYTES % (AUTO) 6.3 % (2.0-9.0); NEUTROPHILS # (AUTO) 5.8 K/uL (1.8-7.7); NEUTROPHILS % (AUTO) 57.9 % (40.0-70.0); PLATELET COUNT (AUTO) 331 K/uL (150-450); RED BLOOD CELL COUNT(AUTO) 5.92 MIL/uL (4.50-5.90); RED CELL DISTRIBUTION WIDTH 14.5 % (11.5-14.5)
[2019-01-30] MEDS: ARIPiprazole 10 MG TABLET PO SCH (08:43)
[2019-01-30] MEDS: DOCUSATE SODIUM 100 MG CAPSULE PO SCH (08:43)
[2019-01-30] MEDS: BuPROPion HCL XL 150 MG ER TABLET PO SCH (08:43)
[2019-01-30] MEDS: OMEGA-3/DHA/EPA/FISH OIL 1,000 MG CAPSULE PO SCH (08:43)
[2019-01-30] MEDS: OMEPRAZOLE 20 MG CAPSULE PO SCH (08:43)
[2019-01-30 09:20] LABS: CHOL/HDL RATIO 7.4 (4.2-7.3); FREE T4 (FREE THYROXINE) 0.73 ng/dL (0.76-1.46); THYROID STIMULATING HORMONE 1.14 uIU/mL (0.36-3.74)
[2019-01-30 16:36] VITALS: BP 119/72
[2019-01-30] MEDS: TraZODone HCL 50 MG TABLET PO SCH (20:43)
[2019-01-30] MEDS: MIRTAZAPINE 15 MG TABLET PO SCH (20:43)
[2019-01-31 01:38] VITALS: BP 112/70
[2019-01-31] MEDS: ARIPiprazole 10 MG TABLET PO SCH (09:19)
[2019-01-31] MEDS: BuPROPion HCL XL 150 MG ER TABLET PO SCH (09:19)
[2019-01-31] MEDS: DOCUSATE SODIUM 100 MG CAPSULE PO SCH (09:19)
[2019-01-31] MEDS: OMEPRAZOLE 20 MG CAPSULE PO SCH (09:19)
[2019-01-31 09:27] VITALS: BP 122/75
[2019-01-31] MEDS: OMEGA-3/DHA/EPA/FISH OIL 1,000 MG CAPSULE PO SCH (09:45)
[2019-01-31 16:33] VITALS: BP 157/96
[2019-01-31 19:56] VITALS: BP 121/79
[2019-01-31] MEDS: MIRTAZAPINE 15 MG TABLET PO SCH (20:39)
[2019-01-31] MEDS: TraZODone HCL 50 MG TABLET PO SCH (20:39)
[2019-02-01 08:58] VITALS: BP 100/60
[2019-02-01] MEDS: ARIPiprazole 10 MG TABLET PO SCH (09:13)
[2019-02-01] MEDS: BuPROPion HCL XL 150 MG ER TABLET PO SCH (09:13)
[2019-02-01] MEDS: DOCUSATE SODIUM 100 MG CAPSULE PO SCH (09:13)
[2019-02-01] MEDS: OMEPRAZOLE 20 MG CAPSULE PO SCH (09:13)
[2019-02-01] MEDS: OMEGA-3/DHA/EPA/FISH OIL 1,000 MG CAPSULE PO SCH (10:23)
[2019-02-01 17:28] VITALS: BP 122/77
[2019-02-01] MEDS: MIRTAZAPINE 15 MG TABLET PO SCH (20:46)
[2019-02-01] MEDS: TraZODone HCL 50 MG TABLET PO SCH (20:46)
[2019-02-02 02:25] VITALS: BP 118/62
[2019-02-02] MEDS: BuPROPion HCL XL 150 MG ER TABLET PO SCH (09:34)
[2019-02-02] MEDS: OMEGA-3/DHA/EPA/FISH OIL 1,000 MG CAPSULE PO SCH (09:35)
[2019-02-02] MEDS: OMEPRAZOLE 20 MG CAPSULE PO SCH (09:35)
[2019-02-02] MEDS: DOCUSATE SODIUM 100 MG CAPSULE PO SCH (09:35)
[2019-02-02 13:35] VITALS: BP 102/62
[2019-02-02 16:07] VITALS: BP 106/58
[2019-02-02] MEDS: MIRTAZAPINE 15 MG TABLET PO SCH (20:50)
[2019-02-02] MEDS: TraZODone HCL 50 MG TABLET PO SCH (20:50)
[2019-02-03 02:59] VITALS: BP 112/68
[2019-02-03] MEDS: OMEGA-3/DHA/EPA/FISH OIL 1,000 MG CAPSULE PO SCH (08:29)
[2019-02-03] MEDS: OMEPRAZOLE 20 MG CAPSULE PO SCH (08:29)
[2019-02-03] MEDS: ARIPiprazole 15 MG TABLET PO SCH (08:29)
[2019-02-03] MEDS: DOCUSATE SODIUM 100 MG CAPSULE PO SCH (08:29)
[2019-02-03] MEDS: BuPROPion HCL XL 150 MG ER TABLET PO SCH (08:29)
[2019-02-03 08:47] VITALS: BP 109/76
[2019-02-03 16:10] VITALS: BP 114/90
[2019-02-03] MEDS: MIRTAZAPINE 15 MG TABLET PO SCH (20:18)
[2019-02-03] MEDS: TraZODone HCL 50 MG TABLET PO SCH (20:18)
[2019-02-04 01:16] VITALS: BP 110/72
[2019-02-04 01:23] VITALS: BP 120/72
[2019-02-04 08:00] VITALS: BP 114/85
[2019-02-04] MEDS: BuPROPion HCL XL 150 MG ER TABLET PO SCH (08:29)
[2019-02-04] MEDS: DOCUSATE SODIUM 100 MG CAPSULE PO SCH (08:30)
[2019-02-04] MEDS: OMEGA-3/DHA/EPA/FISH OIL 1,000 MG CAPSULE PO SCH (08:30)
[2019-02-04] MEDS: OMEPRAZOLE 20 MG CAPSULE PO SCH (08:30)
[2019-02-04] MEDS: ARIPiprazole 15 MG TABLET PO SCH (08:32)
[2019-02-04 16:26] VITALS: BP 118/73
[2019-02-04] MEDS ORDERED: LORazepam 2 MG/ML VIAL ONE (20:03)
[2019-02-04] MEDS ORDERED: HALOPERIDOL LACTATE 5 MG/ML VIAL ONE (20:03)
[2019-02-04] MEDS ORDERED: DiphenhydrAMINE HCL 50 MG/ML VIAL ONE (20:03)
[2019-02-04] MEDS: TraZODone HCL 50 MG TABLET PO SCH (20:11)
[2019-02-04] MEDS: MIRTAZAPINE 15 MG TABLET PO SCH (20:11)
[2019-02-05 00:34] VITALS: BP 116/72
[2019-02-05] MEDS: ARIPiprazole 15 MG TABLET PO SCH (08:04)
[2019-02-05] MEDS: BuPROPion HCL XL 150 MG ER TABLET PO SCH (08:04)
[2019-02-05] MEDS: OMEPRAZOLE 20 MG CAPSULE PO SCH (08:04)
[2019-02-05] MEDS: DOCUSATE SODIUM 100 MG CAPSULE PO SCH (08:04)
[2019-02-05 08:30] VITALS: BP 120/64
[2019-02-05] MEDS: OMEGA-3/DHA/EPA/FISH OIL 1,000 MG CAPSULE PO SCH (11:33)
[2019-02-05 16:12] VITALS: BP 111/71
[2019-02-05] MEDS: MIRTAZAPINE 15 MG TABLET PO SCH (20:06)
[2019-02-05] MEDS: TraZODone HCL 50 MG TABLET PO SCH (20:07)
[2019-02-06 00:33] VITALS: BP 151/100
[2019-02-06 08:04] VITALS: BP 109/64
[2019-02-06] MEDS: DOCUSATE SODIUM 100 MG CAPSULE PO SCH (09:03)
[2019-02-06] MEDS: BuPROPion HCL XL 150 MG ER TABLET PO SCH (09:03)
[2019-02-06] MEDS: OMEGA-3/DHA/EPA/FISH OIL 1,000 MG CAPSULE PO SCH (09:04)
[2019-02-06] MEDS: OMEPRAZOLE 20 MG CAPSULE PO SCH (09:04)
[2019-02-06] MEDS: ARIPiprazole 15 MG TABLET PO SCH (09:04)
[2019-02-06 16:36] VITALS: BP 115/63
[2019-02-06] MEDS: MIRTAZAPINE 15 MG TABLET PO SCH (20:02)
[2019-02-06] MEDS: TraZODone HCL 50 MG TABLET PO SCH (20:02)
[2019-02-07 00:03] VITALS: BP 120/77
[2019-02-07 08:07] VITALS: BP 120/84
[2019-02-07] MEDS: DOCUSATE SODIUM 100 MG CAPSULE PO SCH (08:47)
[2019-02-07] MEDS: ARIPiprazole 15 MG TABLET PO SCH (08:47)
[2019-02-07] MEDS: OMEPRAZOLE 20 MG CAPSULE PO SCH (08:47)
[2019-02-07] MEDS: BuPROPion HCL XL 150 MG ER TABLET PO SCH (08:47)
[2019-02-07] MEDS: OMEGA-3/DHA/EPA/FISH OIL 1,000 MG CAPSULE PO SCH (08:47)
[2019-02-07 16:06] VITALS: BP 119/68
[2019-02-07] MEDS: MIRTAZAPINE 15 MG TABLET PO SCH (20:03)
[2019-02-07] MEDS: TraZODone HCL 50 MG TABLET PO SCH (20:03)
[2019-02-08 06:53] VITALS: BP 110/69
[2019-02-08 08:00] VITALS: BP 129/86
[2019-02-08] MEDS: OMEPRAZOLE 20 MG CAPSULE PO SCH (08:19)
[2019-02-08] MEDS: BuPROPion HCL XL 150 MG ER TABLET PO SCH (08:19)
[2019-02-08] MEDS: DOCUSATE SODIUM 100 MG CAPSULE PO SCH (08:19)
[2019-02-08] MEDS: ARIPiprazole 10 MG TABLET PO SCH (08:19)
[2019-02-08] MEDS: OMEGA-3/DHA/EPA/FISH OIL 1,000 MG CAPSULE PO SCH (08:19)
[2019-02-08 16:51] VITALS: BP 104/87
[2019-02-08] MEDS: TraZODone HCL 50 MG TABLET PO SCH (20:02)
[2019-02-08] MEDS: MIRTAZAPINE 15 MG TABLET PO SCH (20:03)
[2019-02-09 01:03] VITALS: BP 129/74
[2019-02-09 08:32] VITALS: BP 122/75
[2019-02-09] MEDS: OMEPRAZOLE 20 MG CAPSULE PO SCH (08:43)
[2019-02-09] MEDS: DOCUSATE SODIUM 100 MG CAPSULE PO SCH (08:43)
[2019-02-09] MEDS: BuPROPion HCL XL 150 MG ER TABLET PO SCH (08:43)
[2019-02-09] MEDS: ARIPiprazole 10 MG TABLET PO SCH (08:43)
[2019-02-09] MEDS: OMEGA-3/DHA/EPA/FISH OIL 1,000 MG CAPSULE PO SCH (08:44)
[2019-02-09 16:15] VITALS: BP 103/57
[2019-02-09] MEDS: TraZODone HCL 50 MG TABLET PO SCH (20:22)
[2019-02-09] MEDS: MIRTAZAPINE 15 MG TABLET PO SCH (20:22)
[2019-02-10 03:15] VITALS: BP 112/70
[2019-02-10 08:14] VITALS: BP 103/69
[2019-02-10] MEDS: ARIPiprazole 10 MG TABLET PO SCH (09:35)
[2019-02-10] MEDS: OMEPRAZOLE 20 MG CAPSULE PO SCH (09:35)
[2019-02-10] MEDS: OMEGA-3/DHA/EPA/FISH OIL 1,000 MG CAPSULE PO SCH (09:35)
[2019-02-10] MEDS: BuPROPion HCL XL 150 MG ER TABLET PO SCH (09:35)
[2019-02-10] MEDS: DOCUSATE SODIUM 100 MG CAPSULE PO SCH (09:35)
[2019-02-10 16:16] VITALS: BP 125/86
[2019-02-10] MEDS: MIRTAZAPINE 15 MG TABLET PO SCH (20:14)
[2019-02-10] MEDS: TraZODone HCL 50 MG TABLET PO SCH (20:14)
[2019-02-11 05:40] VITALS: BP 105/64
[2019-02-11 08:41] VITALS: BP 87/62
[2019-02-11] MEDS: OMEPRAZOLE 20 MG CAPSULE PO SCH (08:54)
[2019-02-11] MEDS: ARIPiprazole 10 MG TABLET PO SCH (08:54)
[2019-02-11] MEDS: OMEGA-3/DHA/EPA/FISH OIL 1,000 MG CAPSULE PO SCH (08:54)
[2019-02-11] MEDS: BuPROPion HCL XL 150 MG ER TABLET PO SCH (08:54)
[2019-02-11] MEDS: DOCUSATE SODIUM 100 MG CAPSULE PO SCH (08:54)
[2019-02-11 09:37] VITALS: BP 106/64
[2019-02-11] MEDS ORDERED: ARIP10TA8 PO ×2 (11:41→12:11)
[2019-02-11] MEDS ORDERED: BUPR-47 PO (11:41)
[2019-02-11] MEDS ORDERED: MIRT15 PO (11:41)
[2019-02-11] MEDS ORDERED: TRAZ-219 PO (11:41)
== END 2019-02-11 13:20 | disposition home or self-care (01) | DRG 750 ==
LOC: EMS 18:47 → B2S 23:30
DX: F25.1 Schizoaffective disorder, depressive type (principal); R45.851 Suicidal ideations; Z59.0 Homelessness; F15.10 Other stimulant abuse, uncomplicated; F41.9 Anxiety disorder, unspecified; K59.00 Constipation, unspecified; E66.9 Obesity, unspecified; G47.00 Insomnia, unspecified; F12.10 Cannabis abuse, uncomplicated; F17.200 Nicotine dependence, unspecified, uncomplicated; F31.9 Bipolar disorder, unspecified; Z91.19 Patient's noncompliance with other medical treatment and regimen; Z91.5 Personal history of self-harm; Z68.38 Body mass index [BMI] 38.0-38.9, adult; Z79.899 Other long term (current) drug therapy
CPT/HCPCS: 84439; 84443; G0480; J1200; J1630; J2060

== ENCOUNTER 2019-09-10 12:41 | Emergency (ER) | payer MEDICAID, OTHER ==
[~2019-09-10] VITALS: Ht 170.2 cm; Wt 86.4 kg
[~2019-09-10 12:41] MED LIST changes: +BUPR-47 PO; -BUPR-93 PO; +ESCI10TA PO; -MIRT15 PO; -TRAZ-219 PO
[2019-09-10 14:28] LABS: BASOPHILS % (AUTO) 0.5 % (0.0-2.0); HEMATOCRIT 48.3 % (41-53); HEMOGLOBIN 15.8 g/dL (13.5-17.5); LYMPHOCYTES # (AUTO) 1.9 K/uL (1.0-4.8); LYMPHOCYTES % (AUTO) 22.9 % (22.0-44.0); MEAN CORPUSCULAR HEMOGLOBIN 26.9 pg (26.0-34.0); MEAN CORPUSCULAR HGB CONC 32.8 G/dL (31.0-37.0); MEAN CORPUSCULAR VOLUME 82 fL (80-100); MONOCYTES # (AUTO) 0.6 K/uL (0.1-1.0); MONOCYTES % (AUTO) 7.2 % (2.0-9.0); NEUTROPHILS # (AUTO) 5.5 K/uL (1.8-7.7); NEUTROPHILS % (AUTO) 66.4 % (40.0-70.0); PLATELET COUNT (AUTO) 273 K/uL (150-450); RED BLOOD CELL COUNT(AUTO) 5.88 MIL/uL (4.50-5.90); RED CELL DISTRIBUTION WIDTH 14.3 % (11.5-14.5)
[2019-09-10 14:48] LABS: ANION GAP 10 mmol/L (8-16); CALCIUM, TOTAL 8.7 mg/dL (8.8-10.5); CARBON DIOXIDE 26 mmol/L (22-29); CHLORIDE 105 mmol/L (98-107); CREATININE 0.89 mg/dL (0.60-1.30); GLOMERULAR FILTR. RATE CALC > 60 mL/min (>60); GLUCOSE,RANDOM 86 mg/dL (70-110); POTASSIUM 3.9 mmol/L (3.5-5.1); SODIUM SERUM 141 mmol/L (136-145); UREA NITROGEN, BLOOD 9 mg/dL (7-18)
[2019-09-10 14:51] LABS: ALANINE AMINOTRANSFERASE 53 U/L (12-78); ALBUMIN 3.4 g/dL (3.4-5.0); ALKALINE PHOSPHATASE 70 U/L (46-116); ASPARTATE AMINOTRANSFERASE 32 U/L (15-37); BILIRUBIN,TOTAL 0.3 mg/dL (0.1-1.0); TOTAL PROTEIN, SERUM 7.1 g/dL (6.4-8.2)
[2019-09-10 16:40] VITALS: BP 119/84
== END 2019-09-10 17:25 | disposition home or self-care (01) ==
LOC: EMS 12:42
DX: F41.9 Anxiety disorder, unspecified (principal); F31.9 Bipolar disorder, unspecified; E78.00 Pure hypercholesterolemia, unspecified; F20.9 Schizophrenia, unspecified; F17.210 Nicotine dependence, cigarettes, uncomplicated; F15.90 Other stimulant use, unspecified, uncomplicated; Z59.0 Homelessness; Z79.899 Other long term (current) drug therapy
CPT/HCPCS: 93005

== ENCOUNTER 2020-04-18 11:57 | Emergency (ER) | payer OTHER ==
[~2020-04-18] VITALS: Ht 170.2 cm; Wt 105.9 kg
[~2020-04-18 11:57] MED LIST changes: +ESCI-8 PO; -ESCI10TA PO
[2020-04-18] MEDS ORDERED: GABA-1216 PO (12:03)
[2020-04-18] MEDS ORDERED: BUPR75 PO (12:03)
[2020-04-18 14:16] LABS: BASOPHILS % (AUTO) 0.3 % (0.0-2.0); EOSINOPHILS % (AUTO) 3.6 % (1.0-6.0); HEMATOCRIT 46.5 % (41-53); HEMOGLOBIN 15.7 g/dL (13.5-17.5); LYMPHOCYTES # (AUTO) 2.4 K/uL (1.0-4.8); LYMPHOCYTES % (AUTO) 30.6 % (22.0-44.0); MEAN CORPUSCULAR HEMOGLOBIN 27.8 pg (26.0-34.0); MEAN CORPUSCULAR HGB CONC 33.7 G/dL (31.0-37.0); MEAN CORPUSCULAR VOLUME 83 fL (80-100); MONOCYTES # (AUTO) 0.5 K/uL (0.1-1.0); MONOCYTES % (AUTO) 6.2 % (2.0-9.0); NEUTROPHILS # (AUTO) 4.7 K/uL (1.8-7.7); NEUTROPHILS % (AUTO) 59.3 % (40.0-70.0); PLATELET COUNT (AUTO) 281 K/uL (150-450); RED BLOOD CELL COUNT(AUTO) 5.62 MIL/uL (4.50-5.90); RED CELL DISTRIBUTION WIDTH 14.3 % (11.5-14.5)
[2020-04-18 14:29] LABS: ANION GAP 8 mmol/L (8-16); CALCIUM, TOTAL 8.4 mg/dL (8.8-10.5); CARBON DIOXIDE 25 mmol/L (22-29); CHLORIDE 107 mmol/L (98-107); CREATININE 0.95 mg/dL (0.60-1.30); GLOMERULAR FILTR. RATE CALC > 60 mL/min (>60); GLUCOSE,RANDOM 102 mg/dL (70-110); POTASSIUM 4.3 mmol/L (3.5-5.1); SODIUM SERUM 140 mmol/L (136-145); UREA NITROGEN, BLOOD 7 mg/dL (7-18)
[2020-04-18 14:35] LABS: ALANINE AMINOTRANSFERASE 36 U/L (12-78); ALBUMIN 3.3 g/dL (3.4-5.0); ALKALINE PHOSPHATASE 76 U/L (46-116); ASPARTATE AMINOTRANSFERASE 19 U/L (15-37); BILIRUBIN,TOTAL 0.3 mg/dL (0.1-1.0); TOTAL PROTEIN, SERUM 6.8 g/dL (6.4-8.2)
[2020-04-19 03:07] VITALS: BP 106/70
== END 2020-04-19 06:23 | disposition home or self-care (01) ==
LOC: EMS 12:00
DX: R45.851 Suicidal ideations (principal); F41.9 Anxiety disorder, unspecified; F31.9 Bipolar disorder, unspecified; F20.9 Schizophrenia, unspecified; E78.00 Pure hypercholesterolemia, unspecified; F17.210 Nicotine dependence, cigarettes, uncomplicated; Z59.0 Homelessness; Z88.0 Allergy status to penicillin
CPT/HCPCS: 80053; 85025; 99284; G0480

== ENCOUNTER 2020-05-16 18:09 | Inpatient (IN) | payer MEDICAID, OTHER ==
[~2020-05-16] VITALS: Ht 170.2 cm; Wt 100.7 kg
[~2020-05-16 18:09] MED LIST changes: -ARIP10TA8 PO; -BUPR-47 PO; +BUPR75 PO; -ESCI-8 PO; +GABA-1216 PO; -OMEG-135 PO
[2020-05-16 23:58] LABS: AMPHET/METH SCREEN,URINE POSITIVE (NEGATIVE); BARBITURATE SCREEN, URINE NEGATIVE (NEGATIVE); BENZODIAZEPINES SCREEN,URINE NEGATIVE (NEGATIVE); CANNABINOID SCREEN,URINE POSITIVE (NEGATIVE); COCAINE SCREEN,URINE NEGATIVE (NEGATIVE); METHADONE SCREEN, URINE NEGATIVE (NEGATIVE); OPIATE SCREEN,URINE NEGATIVE (NEGATIVE)
[2020-05-16 23:59] LABS: PHENCYCLIDINE SCREEN,URINE NEGATIVE (NEGATIVE)
[2020-05-17 01:34] LABS: BASOPHILS % (AUTO) 0.4 % (0.0-2.0); HEMATOCRIT 45.3 % (41-53); LYMPHOCYTES # (AUTO) 3.8 K/uL (1.0-4.8); LYMPHOCYTES % (AUTO) 36.1 % (22.0-44.0); MEAN CORPUSCULAR HEMOGLOBIN 27.3 pg (26.0-34.0); MEAN CORPUSCULAR HGB CONC 33.2 G/dL (31.0-37.0); MEAN CORPUSCULAR VOLUME 82 fL (80-100); MONOCYTES # (AUTO) 0.8 K/uL (0.1-1.0); MONOCYTES % (AUTO) 7.2 % (2.0-9.0); NEUTROPHILS # (AUTO) 5.4 K/uL (1.8-7.7); NEUTROPHILS % (AUTO) 51.3 % (40.0-70.0); PLATELET COUNT (AUTO) 293 K/uL (150-450); RED BLOOD CELL COUNT(AUTO) 5.51 MIL/uL (4.50-5.90)
[2020-05-17 01:38] LABS: ANION GAP 6 mmol/L (8-16); CALCIUM, TOTAL 8.3 mg/dL (8.8-10.5); CARBON DIOXIDE 32 mmol/L (22-29); CHLORIDE 104 mmol/L (98-107); CREATININE 1.02 mg/dL (0.60-1.30); GLOMERULAR FILTR. RATE CALC > 60 mL/min (>60); GLUCOSE,RANDOM 108 mg/dL (70-110); POTASSIUM 3.6 mmol/L (3.5-5.1); SODIUM SERUM 142 mmol/L (136-145); UREA NITROGEN, BLOOD 8 mg/dL (7-18)
[2020-05-17 01:44] LABS: ALANINE AMINOTRANSFERASE 44 U/L (12-78); ALBUMIN 3.2 g/dL (3.4-5.0); ALKALINE PHOSPHATASE 87 U/L (46-116); ASPARTATE AMINOTRANSFERASE 59 U/L (15-37); BILIRUBIN,TOTAL 0.4 mg/dL (0.1-1.0); TOTAL PROTEIN, SERUM 6.9 g/dL (6.4-8.2)
[2020-05-17] MEDS ORDERED: ZOLPIDEM TARTRATE 10 MG TABLET PO PRN (02:15)
[2020-05-17] MEDS ORDERED: HALOPERIDOL 5 MG TABLET PO PRN (02:15)
[2020-05-17 03:01] LABS: APPEARANCE,URINE CLEAR (CLEAR); GLUCOSE, URINE (UA) NEGATIVE (NEGATIVE); KETONES,URINE NEGATIVE (NEGATIVE); LEUKOCYTE ESTERASE ,URINE NEGATIVE (NEGATIVE); NITRATE,URINE NEGATIVE (NEGATIVE); OCCULT BLOOD,URINE NEGATIVE (NEGATIVE); PH,URINE 6.5 (5.0-8.0); PROTEIN,URINE TRACE (NEGATIVE)
[2020-05-17 03:11] LABS: BILIRUBIN,URINE PRELIM. POSITIVE (NEGATIVE)
[2020-05-17 04:20] VITALS: BP 131/77
[2020-05-17 08:01] VITALS: BP 131/72
[2020-05-17] MEDS: RisperiDONE 1 MG TABLET PO SCH (16:27)
[2020-05-17] MEDS: GABAPENTIN 300 MG CAPSULE PO SCH (16:27)
[2020-05-17 16:50] VITALS: BP 113/71
[2020-05-18 06:14] VITALS: BP 110/70
[2020-05-18 08:27] LABS: CHOL/HDL RATIO 6.8 (4.2-7.3)
[2020-05-18 09:09] VITALS: BP 107/64
[2020-05-18] MEDS: RisperiDONE 1 MG TABLET PO SCH ×2 (09:09→16:48)
[2020-05-18] MEDS: BuPROPion HCL 150 MG SR TABLET PO SCH (09:09)
[2020-05-18] MEDS: GABAPENTIN 300 MG CAPSULE PO SCH ×2 (09:09→16:46)
[2020-05-18 16:06] VITALS: BP 105/61
[2020-05-18] MEDS: LORazepam 2 MG TABLET PO PRN (16:48)
[2020-05-19 06:18] VITALS: BP 110/68
[2020-05-19] MEDS: RisperiDONE 1 MG TABLET PO SCH ×2 (08:03→16:12)
[2020-05-19] MEDS: BuPROPion HCL 150 MG SR TABLET PO SCH (08:03)
[2020-05-19] MEDS: GABAPENTIN 300 MG CAPSULE PO SCH ×2 (08:03→16:12)
[2020-05-19 08:09] VITALS: BP 119/78
[2020-05-19 16:01] VITALS: BP 115/66
[2020-05-19] MEDS: LORazepam 2 MG TABLET PO PRN (16:12)
[2020-05-20 08:14] VITALS: BP 124/65
[2020-05-20] MEDS: GABAPENTIN 300 MG CAPSULE PO SCH ×2 (08:15→16:12)
[2020-05-20] MEDS: RisperiDONE 1 MG TABLET PO SCH ×2 (08:15→16:12)
[2020-05-20] MEDS: BuPROPion HCL 150 MG SR TABLET PO SCH (08:15)
[2020-05-20 16:03] VITALS: BP 116/65
[2020-05-20] MEDS: LORazepam 2 MG TABLET PO PRN (16:12)
[2020-05-21 06:32] VITALS: BP 117/70
[2020-05-21 08:00] VITALS: BP 105/64
[2020-05-21] MEDS: GABAPENTIN 300 MG CAPSULE PO SCH ×2 (08:26→16:01)
[2020-05-21] MEDS: RisperiDONE 1 MG TABLET PO SCH ×2 (08:26→16:01)
[2020-05-21] MEDS: BuPROPion HCL 150 MG SR TABLET PO SCH (08:26)
[2020-05-21 16:01] VITALS: BP 105/62
[2020-05-22 00:12] VITALS: BP 102/76
[2020-05-22 08:20] VITALS: BP 101/68
[2020-05-22] MEDS: GABAPENTIN 300 MG CAPSULE PO SCH ×2 (08:31→16:11)
[2020-05-22] MEDS: BuPROPion HCL 150 MG SR TABLET PO SCH (08:31)
[2020-05-22] MEDS: RisperiDONE 1 MG TABLET PO SCH ×2 (08:31→16:11)
[2020-05-22 17:03] VITALS: BP 131/82
[2020-05-23 05:35] VITALS: BP 128/79
[2020-05-23] MEDS: RisperiDONE 1 MG TABLET PO SCH ×2 (08:44→16:45)
[2020-05-23] MEDS: BuPROPion HCL 150 MG SR TABLET PO SCH (08:44)
[2020-05-23] MEDS: GABAPENTIN 300 MG CAPSULE PO SCH ×2 (08:46→16:45)
[2020-05-23 09:45] VITALS: BP 126/80
[2020-05-23 16:10] VITALS: BP 134/69
[2020-05-24 05:19] VITALS: BP 132/70
[2020-05-24 08:16] VITALS: BP 109/63
[2020-05-24] MEDS: GABAPENTIN 300 MG CAPSULE PO SCH ×2 (08:32→16:27)
[2020-05-24] MEDS: RisperiDONE 1 MG TABLET PO SCH ×2 (08:32→16:27)
[2020-05-24] MEDS: BuPROPion HCL 150 MG SR TABLET PO SCH (08:32)
[2020-05-24 16:04] VITALS: BP 131/76
[2020-05-24] MEDS ORDERED: PETROLATUM,WHITE 28 GM JELLY TP PRN (16:45)
[2020-05-24] MEDS ORDERED: LOPERAMIDE HCL 2 MG CAPSULE PO PRN (16:45)
[2020-05-24] MEDS ORDERED: MAG HYDROX/AL HYDROX/SIMETH ES 30 ML SUSPENSION UDCUP PO PRN (16:45)
[2020-05-24] MEDS ORDERED: NICOTINE 14 MG/24 HOUR PATCH TD PRN (16:45)
[2020-05-24] MEDS ORDERED: DOCUSATE SODIUM 100 MG CAPSULE PO PRN (16:45)
[2020-05-24] MEDS ORDERED: GuaiFENesin/D-METHORPHAN [SUGAR-FREE] 200-20MG/10 ML SYRUP UDCUP PO PRN (16:45)
[2020-05-24] MEDS ORDERED: IBUPROFEN 400 MG TABLET PO PRN (16:45)
[2020-05-24] MEDS ORDERED: CloNIDine HCL 0.1 MG TABLET PO PRN (16:45)
[2020-05-24] MEDS ORDERED: ACETAMINOPHEN 325 MG TABLET PO PRN (16:45)
[2020-05-24] MEDS ORDERED: ALBUTEROL SULFATE HFA 90 MCG/PUFF 8 GM INHALER IH PRN (16:45)
[2020-05-24] MEDS ORDERED: MAGNESIUM HYDROXIDE SUSPENSION 30 ML UDCUP PO PRN (16:45)
[2020-05-24] MEDS ORDERED: ONDANSETRON HCL 4 MG TABLET PO PRN (16:45)
[2020-05-25 05:28] VITALS: BP 125/68
[2020-05-25 08:09] VITALS: BP 121/75
[2020-05-25] MEDS: RisperiDONE 1 MG TABLET PO SCH (08:35)
[2020-05-25] MEDS: GABAPENTIN 300 MG CAPSULE PO SCH (08:35)
[2020-05-25] MEDS: BuPROPion HCL 150 MG SR TABLET PO SCH (08:35)
[2020-05-25 16:29] VITALS: BP 117/82
== END 2020-05-25 16:55 | disposition left against medical advice (07) | DRG 885 ==
LOC: EMS 18:13 → B3A 05-17 02:13 → B2S 05-21 15:50
PROVIDERS: ADMIT Psychiatry & Neurology Child & Adolescent Psychiatry; ATTEND Psychiatry & Neurology Child & Adolescent Psychiatry
DX: F25.1 Schizoaffective disorder, depressive type (principal); R45.851 Suicidal ideations; Z91.19 Patient's noncompliance with other medical treatment and regimen; F41.9 Anxiety disorder, unspecified; Z88.0 Allergy status to penicillin; I10 Essential (primary) hypertension; E78.5 Hyperlipidemia, unspecified; F32.9 Major depressive disorder, single episode, unspecified; R74.0 Nonspecific elevation of levels of transaminase and lactic acid dehydrogenase [LDH]; F19.10 Other psychoactive substance abuse, uncomplicated; Z91.14 Patient's other noncompliance with medication regimen; F15.10 Other stimulant abuse, uncomplicated; E78.00 Pure hypercholesterolemia, unspecified; Z59.0 Homelessness; F17.210 Nicotine dependence, cigarettes, uncomplicated; F12.10 Cannabis abuse, uncomplicated; K59.00 Constipation, unspecified
CPT/HCPCS: G0480

== ENCOUNTER 2022-07-24 23:18 | Emergency (ER) | payer MEDICAID ==
[~2022-07-24] VITALS: Ht 170.2 cm; Wt 104.5 kg
[2022-07-25] MEDS ORDERED: SULF-261 PO (00:45)
[2022-07-25 01:18] VITALS: BP 132/81
== END 2022-07-25 01:27 | disposition home or self-care (01) ==
LOC: EMS 23:20
DX: L03.221 Cellulitis of neck (principal); F41.9 Anxiety disorder, unspecified; F31.9 Bipolar disorder, unspecified; E78.00 Pure hypercholesterolemia, unspecified; F20.9 Schizophrenia, unspecified; F17.210 Nicotine dependence, cigarettes, uncomplicated; Z59.00 Homelessness unspecified; Z88.0 Allergy status to penicillin
CPT/HCPCS: 99283

== ENCOUNTER 2022-07-26 22:09 | Inpatient (IN) | payer MEDICAID ==
[~2022-07-26] VITALS: Ht 170.2 cm; Wt 97.5 kg
[~2022-07-26 22:09] MED LIST changes: -BUPR75 PO; -GABA-1216 PO; +SULF-261 PO
[2022-07-27] MEDS ORDERED: LORazepam 2 MG TABLET PO PRN (00:45)
[2022-07-27] MEDS ORDERED: HALOPERIDOL 5 MG TABLET PO PRN (00:45)
[2022-07-27] MEDS ORDERED: ZOLPIDEM TARTRATE 10 MG TABLET PO PRN (00:45)
[2022-07-27 02:19] VITALS: BP 135/77
[2022-07-27] MEDS: SULFAMETHOX/TRIMETH DS 800-160 MG/TABLET PO SCH ×2 (08:18→16:16)
[2022-07-27 08:39] VITALS: BP 130/70
[2022-07-27] MEDS ORDERED: MAG HYDROX/AL HYDROX/SIMETH ES 30 ML SUSPENSION UDCUP PO PRN (15:45)
[2022-07-27] MEDS ORDERED: ONDANSETRON HCL 4 MG TABLET PO PRN (15:45)
[2022-07-27] MEDS ORDERED: IBUPROFEN 400 MG TABLET PO PRN (15:45)
[2022-07-27] MEDS ORDERED: GuaiFENesin/D-METHORPHAN [SUGAR-FREE] 200-20MG/10 ML SYRUP UDCUP PO PRN (15:45)
[2022-07-27] MEDS ORDERED: PETROLATUM,WHITE 28 GM JELLY TP PRN (15:45)
[2022-07-27] MEDS ORDERED: ALBUTEROL SULFATE HFA 90 MCG/PUFF 8 GM INHALER IH PRN (15:45)
[2022-07-27] MEDS ORDERED: LOPERAMIDE HCL 2 MG CAPSULE PO PRN (15:45)
[2022-07-27] MEDS ORDERED: CloNIDine HCL 0.1 MG TABLET PO PRN (15:45)
[2022-07-27] MEDS ORDERED: MAGNESIUM HYDROXIDE SUSPENSION 30 ML UDCUP PO PRN (15:45)
[2022-07-27] MEDS ORDERED: NICOTINE 14 MG/24 HOUR PATCH TD PRN (15:45)
[2022-07-27] MEDS ORDERED: DOCUSATE SODIUM 100 MG CAPSULE PO PRN (15:45)
[2022-07-27] MEDS ORDERED: ACETAMINOPHEN 325 MG TABLET PO PRN (15:45)
[2022-07-27 16:02] VITALS: BP 106/64
[2022-07-27] MEDS: GABAPENTIN 300 MG CAPSULE PO SCH ×2 (16:16→20:06)
[2022-07-27] MEDS: LURASIDONE HCL 60 MG TABLET PO SCH (16:16)
[2022-07-28 07:14] LABS: BAND NEUTROPHILS % (MANUAL) 0 % (0-5)
[2022-07-28 07:17] LABS: HEMOGLOBIN 14.1 g/dL (13.5-17.5); MEAN CORPUSCULAR HEMOGLOBIN 29.2 pg (26.0-34.0); MEAN CORPUSCULAR HGB CONC 32.7 G/dL (31.0-37.0); MEAN CORPUSCULAR VOLUME 89 fL (80-100); PLATELET COUNT (AUTO) 321 K/uL (150-450); RED BLOOD CELL COUNT(AUTO) 4.83 MIL/uL (4.50-5.90); RED CELL DISTRIBUTION WIDTH 13.8 % (11.5-14.5)
[2022-07-28 07:28] LABS: HEMOGLOBIN A1C 5.8 % (3.8-5.6)
[2022-07-28 07:54] LABS: ALANINE AMINOTRANSFERASE 74 U/L (12-78); ALBUMIN 3.8 g/dL (3.4-5.0); ALKALINE PHOSPHATASE 85 U/L (46-116); ANION GAP 8 mmol/L (8-16); ASPARTATE AMINOTRANSFERASE 41 U/L (15-37); CALCIUM, TOTAL 9.5 mg/dL (8.8-10.5); CARBON DIOXIDE 29 mmol/L (22-29); CHLORIDE 104 mmol/L (98-107); CHOL/HDL RATIO 3.1 (4.2-7.3); CHOLESTEROL 196 mg/dL (131-200); CREATININE 0.82 mg/dL (0.60-1.30); FREE T4 (FREE THYROXINE) 1.06 ng/dL (0.76-1.46); GLUCOSE,RANDOM 105 mg/dL (70-110); HDL CHOLESTEROL 63 mg/dL (40-60); LDL CHOL (CALC.) 116 mg/dL (0-130); SODIUM SERUM 141 mmol/L (136-145); THYROID STIMULATING HORMONE 1.21 uIU/mL (0.36-3.74); TOTAL PROTEIN, SERUM 7.8 g/dL (6.4-8.2); TRIGLYCERIDES 87 mg/dL (15-150); UREA NITROGEN, BLOOD 10 mg/dL (7-18)
[2022-07-28 07:56] LABS: GLOMERULAR FILTR. RATE CALC > 60 mL/min (>60)
[2022-07-28] MEDS: BuPROPion HCL XL 150 MG ER TABLET PO SCH (08:09)
[2022-07-28] MEDS: GABAPENTIN 300 MG CAPSULE PO SCH ×3 (08:09→20:06)
[2022-07-28] MEDS: SULFAMETHOX/TRIMETH DS 800-160 MG/TABLET PO SCH ×2 (08:09→16:29)
[2022-07-28 08:26] VITALS: BP 107/66
[2022-07-28 09:27] LABS: LYMPHOCYTES % (MANUAL) 44 % (22-44); MONOCYTES % (MANUAL) 4 % (2-9); SEGMENTED NEUTROPHILS % 52 % (40-70)
[2022-07-28] MEDS: LURASIDONE HCL 60 MG TABLET PO SCH (16:29)
[2022-07-28 20:05] VITALS: BP 109/73
[2022-07-29 08:31] VITALS: BP 117/63
[2022-07-29] MEDS: SULFAMETHOX/TRIMETH DS 800-160 MG/TABLET PO SCH ×2 (09:29→16:47)
[2022-07-29] MEDS: GABAPENTIN 300 MG CAPSULE PO SCH ×3 (09:30→20:37)
[2022-07-29] MEDS: BuPROPion HCL XL 150 MG ER TABLET PO SCH (09:30)
[2022-07-29] MEDS: LURASIDONE HCL 60 MG TABLET PO SCH (16:47)
[2022-07-29 20:19] VITALS: BP 119/72
[2022-07-29 22:22] VITALS: BP 122/82
[2022-07-30 08:35] VITALS: BP 119/77
[2022-07-30] MEDS: SULFAMETHOX/TRIMETH DS 800-160 MG/TABLET PO SCH ×2 (09:39→17:11)
[2022-07-30] MEDS: GABAPENTIN 300 MG CAPSULE PO SCH ×3 (09:39→20:10)
[2022-07-30] MEDS: BuPROPion HCL XL 150 MG ER TABLET PO SCH (09:39)
[2022-07-30] MEDS: LURASIDONE HCL 60 MG TABLET PO SCH (17:11)
[2022-07-30 20:15] VITALS: BP 104/56
[2022-07-31 08:30] VITALS: BP 128/72
[2022-07-31] MEDS: MULTIVITAMINS WITH MINERALS, THERAPEUTIC TABLET PO SCH (09:00)
[2022-07-31] MEDS: BuPROPion HCL XL 150 MG ER TABLET PO SCH (09:00)
[2022-07-31] MEDS: GABAPENTIN 300 MG CAPSULE PO SCH ×3 (09:00→20:09)
[2022-07-31] MEDS: SULFAMETHOX/TRIMETH DS 800-160 MG/TABLET PO SCH ×2 (09:00→16:57)
[2022-07-31] MEDS: LURASIDONE HCL 60 MG TABLET PO SCH (16:57)
[2022-08-01 08:29] VITALS: BP 126/72
[2022-08-01] MEDS: BuPROPion HCL XL 150 MG ER TABLET PO SCH (09:28)
[2022-08-01] MEDS: GABAPENTIN 300 MG CAPSULE PO SCH ×3 (09:29→20:04)
[2022-08-01] MEDS: SULFAMETHOX/TRIMETH DS 800-160 MG/TABLET PO SCH ×2 (09:29→16:58)
[2022-08-01] MEDS: MULTIVITAMINS WITH MINERALS, THERAPEUTIC TABLET PO SCH (09:29)
[2022-08-01] MEDS: LURASIDONE HCL 60 MG TABLET PO SCH (16:58)
[2022-08-01 20:01] VITALS: BP 144/85
[2022-08-02] MEDS: BuPROPion HCL XL 150 MG ER TABLET PO SCH (09:00)
[2022-08-02] MEDS: GABAPENTIN 300 MG CAPSULE PO SCH ×2 (09:00→17:11)
[2022-08-02] MEDS: MULTIVITAMINS WITH MINERALS, THERAPEUTIC TABLET PO SCH (09:00)
[2022-08-02] MEDS: SULFAMETHOX/TRIMETH DS 800-160 MG/TABLET PO SCH ×2 (09:31→17:11)
[2022-08-02 12:51] LABS: GLUCOMETER DEV NAME(LOC) POC.BV
[2022-08-02] MEDS: LURASIDONE HCL 60 MG TABLET PO SCH (17:11)
== END 2022-08-02 17:30 | disposition left against medical advice (07) | DRG 750 ==
LOC: B2S 07-27 00:20
PROVIDERS: ADMIT Psychiatry & Neurology Psychiatry; ATTEND Psychiatry & Neurology Psychiatry
DX: F25.1 Schizoaffective disorder, depressive type (principal); R45.851 Suicidal ideations; L03.221 Cellulitis of neck; E78.5 Hyperlipidemia, unspecified; F10.10 Alcohol abuse, uncomplicated; F15.10 Other stimulant abuse, uncomplicated; I10 Essential (primary) hypertension; Z59.00 Homelessness unspecified; Z91.51 Personal history of suicidal behavior; Z79.899 Other long term (current) drug therapy; Z88.0 Allergy status to penicillin
CPT/HCPCS: 80053; 80061; 83036; 84439; 84443; 85007; 85027; Q9967

== ENCOUNTER 2022-12-30 21:23 | Inpatient (IN) | payer MEDICAID ==
[~2022-12-30] VITALS: Ht 170.2 cm; Wt 97.7 kg
[2022-12-31] MEDS ORDERED: HALOPERIDOL 5 MG TABLET PO ONE (00:30)
[2022-12-31] MEDS ORDERED: LORazepam 1 MG TABLET PO ONE (00:30)
[2022-12-31 02:33] LABS: BASOPHILS % (AUTO) 0.2 % (0.0-2.0); EOSINOPHILS % (AUTO) 5.3 % (1.0-6.0); HEMATOCRIT 49.9 % (41-53); HEMOGLOBIN 16.7 g/dL (13.5-17.5); LYMPHOCYTES # (AUTO) 3.3 K/uL (1.0-4.8); LYMPHOCYTES % (AUTO) 30.6 % (22.0-44.0); MEAN CORPUSCULAR HEMOGLOBIN 27.9 pg (26.0-34.0); MEAN CORPUSCULAR HGB CONC 33.5 G/dL (31.0-37.0); MEAN CORPUSCULAR VOLUME 83 fL (80-100); MONOCYTES # (AUTO) 0.6 K/uL (0.1-1.0); MONOCYTES % (AUTO) 5.8 % (2.0-9.0); NEUTROPHILS # (AUTO) 6.2 K/uL (1.8-7.7); NEUTROPHILS % (AUTO) 58.1 % (40.0-70.0); PLATELET COUNT (AUTO) 300 K/uL (150-450); RED BLOOD CELL COUNT(AUTO) 5.99 MIL/uL (4.50-5.90); RED CELL DISTRIBUTION WIDTH 14.7 % (11.5-14.5)
[2022-12-31 02:37] LABS: ANION GAP 5 mmol/L (8-16); CALCIUM, TOTAL 9.3 mg/dL (8.8-10.5); CARBON DIOXIDE 32 mmol/L (22-29); CHLORIDE 104 mmol/L (98-107); CREATININE 1.15 mg/dL (0.60-1.30); GLOMERULAR FILTR. RATE CALC > 60 mL/min (>60); GLUCOSE,RANDOM 99 mg/dL (70-110); POTASSIUM 4.1 mmol/L (3.5-5.1); SODIUM SERUM 141 mmol/L (136-145); UREA NITROGEN, BLOOD 11 mg/dL (7-18)
[2022-12-31 02:43] LABS: ALANINE AMINOTRANSFERASE 41 U/L (12-78); ALBUMIN 3.9 g/dL (3.4-5.0); ALKALINE PHOSPHATASE 83 U/L (46-116); ASPARTATE AMINOTRANSFERASE 19 U/L (15-37); BILIRUBIN,TOTAL 0.6 mg/dL (0.1-1.0); TOTAL PROTEIN, SERUM 7.9 g/dL (6.4-8.2)
[2022-12-31 04:45] LABS: COVID AG,FIA SOURCE NASAL SWAB
[2022-12-31] MEDS ORDERED: LORazepam 2 MG TABLET PO PRN (06:45)
[2022-12-31] MEDS ORDERED: HALOPERIDOL 5 MG TABLET PO PRN (06:45)
[2022-12-31] MEDS ORDERED: ZOLPIDEM TARTRATE 10 MG TABLET PO PRN (06:45)
[2022-12-31 14:38] VITALS: BP 122/79
[2022-12-31 15:15] VITALS: BP 122/79
[2022-12-31 20:19] VITALS: BP 110/63
[2023-01-01 08:53] VITALS: BP 100/71
[2023-01-01] MEDS ORDERED: ONDANSETRON HCL 4 MG TABLET PO PRN (14:15)
[2023-01-01] MEDS ORDERED: CloNIDine HCL 0.1 MG TABLET PO PRN (14:15)
[2023-01-01] MEDS ORDERED: MAGNESIUM HYDROXIDE SUSPENSION 30 ML UDCUP PO PRN (14:15)
[2023-01-01] MEDS ORDERED: ACETAMINOPHEN 325 MG TABLET PO PRN (14:15)
[2023-01-01] MEDS ORDERED: ALBUTEROL SULFATE HFA 90 MCG/PUFF 8 GM INHALER IH PRN (14:15)
[2023-01-01] MEDS ORDERED: DOCUSATE SODIUM 100 MG CAPSULE PO PRN (14:15)
[2023-01-01] MEDS ORDERED: LOPERAMIDE HCL 2 MG CAPSULE PO PRN (14:15)
[2023-01-01] MEDS ORDERED: IBUPROFEN 400 MG TABLET PO PRN (14:15)
[2023-01-01] MEDS ORDERED: NICOTINE 14 MG/24 HOUR PATCH TD PRN (14:15)
[2023-01-01] MEDS ORDERED: GuaiFENesin/D-METHORPHAN [SUGAR-FREE] 200-20MG/10 ML SYRUP UDCUP PO PRN (14:15)
[2023-01-01] MEDS ORDERED: PETROLATUM,WHITE 28 GM JELLY TP PRN (14:15)
[2023-01-01] MEDS ORDERED: MAG HYDROX/AL HYDROX/SIMETH ES 30 ML SUSPENSION UDCUP PO PRN (14:15)
[2023-01-01 20:16] VITALS: BP 102/70
[2023-01-02] MEDS: RisperiDONE 0.5 MG TABLET PO SCH (17:11)
[2023-01-02 20:15] VITALS: BP 108/64
[2023-01-03 08:08] LABS: HEPATITIS C AB (EIA) Non Reactive (Non Reactive)
[2023-01-03] MEDS: RisperiDONE 0.5 MG TABLET PO SCH ×2 (08:21→16:37)
[2023-01-03 08:45] VITALS: BP 105/65
[2023-01-03 09:08] LABS: APPEARANCE,URINE TURBID (CLEAR); BILIRUBIN,URINE NEGATIVE (NEGATIVE); GLUCOSE, URINE (UA) NEGATIVE (NEGATIVE); KETONES,URINE NEGATIVE (NEGATIVE); LEUKOCYTE ESTERASE ,URINE MODERATE (NEGATIVE); NITRATE,URINE NEGATIVE (NEGATIVE); OCCULT BLOOD,URINE NEGATIVE (NEGATIVE); PROTEIN,URINE 30-70 mg/dL (NEGATIVE); SPECIFIC GRAVITIY, URINE 1.028 (1.003-1.030); UROBILINOGEN,URINE <=1.0 mg/dL (<=1.0)
[2023-01-03 09:15] LABS: AMPHET/METH SCREEN,URINE POSITIVE (NEGATIVE); BARBITURATE SCREEN, URINE NEGATIVE (NEGATIVE); BENZODIAZEPINES SCREEN,URINE NEGATIVE (NEGATIVE); CANNABINOID SCREEN,URINE POSITIVE (NEGATIVE); COCAINE SCREEN,URINE NEGATIVE (NEGATIVE); METHADONE SCREEN, URINE NEGATIVE (NEGATIVE); OPIATE SCREEN,URINE NEGATIVE (NEGATIVE); PHENCYCLIDINE SCREEN,URINE NEGATIVE (NEGATIVE)
[2023-01-03 09:29] LABS: BACTERIA,URINE Moderate /HPF (None Seen); RBC,URINE 0-2 /HPF (0-2); WBC,URINE 0-2 /HPF (0-5)
[2023-01-03 09:30] LABS: SQUAMOUS EPITHELIAL CELL,UR Rare /LPF (None Seen)
[2023-01-03 20:21] VITALS: BP 108/62
[2023-01-04] MEDS: RisperiDONE 0.5 MG TABLET PO SCH ×2 (08:37→16:08)
[2023-01-04 21:47] VITALS: BP 107/64
[2023-01-05 08:44] VITALS: BP 110/66
[2023-01-05] MEDS: RisperiDONE 0.5 MG TABLET PO SCH ×2 (08:52→17:01)
[2023-01-05 20:27] VITALS: BP 108/62
[2023-01-06 08:10] VITALS: BP 107/66
[2023-01-06] MEDS: RisperiDONE 0.5 MG TABLET PO SCH ×2 (09:25→16:57)
[2023-01-06 22:26] VITALS: BP 122/79
[2023-01-07 08:51] VITALS: BP 110/68
[2023-01-07] MEDS: RisperiDONE 0.5 MG TABLET PO SCH (08:53)
[2023-01-07 09:51] LABS: GLUCOMETER DEV NAME(LOC) POC.BV
[2023-01-07] MEDS ORDERED: RISP0.5T39 PO (14:55)
[2023-01-07] MEDS ORDERED: RISP0.5T66 PO (16:41)
== END 2023-01-07 17:58 | disposition home or self-care (01) | DRG 750 ==
LOC: EMS 21:39 → B3A 12-31 09:31
PROVIDERS: ADMIT Psychiatry & Neurology Child & Adolescent Psychiatry; ATTEND Psychiatry & Neurology Child & Adolescent Psychiatry
DX: F25.1 Schizoaffective disorder, depressive type (principal); R45.851 Suicidal ideations; E66.9 Obesity, unspecified; E78.00 Pure hypercholesterolemia, unspecified; F31.9 Bipolar disorder, unspecified; F15.10 Other stimulant abuse, uncomplicated; F12.10 Cannabis abuse, uncomplicated; G47.00 Insomnia, unspecified; Z20.822 Contact with and (suspected) exposure to COVID-19; F17.210 Nicotine dependence, cigarettes, uncomplicated; F41.9 Anxiety disorder, unspecified; Z59.00 Homelessness unspecified; Z68.33 Body mass index [BMI] 33.0-33.9, adult; Z88.0 Allergy status to penicillin; Z71.51 Drug abuse counseling and surveillance of drug abuser; Z71.6 Tobacco abuse counseling
CPT/HCPCS: 80053; 80307; 81001; 85025; 86709; 86803; 87086; 87186; G0480